=== PATIENT | male | born 1970 | race Caucasian/White ===

== ENCOUNTER → 2022-04-04 | Outpatient (CLI) | payer MEDICAID, SELFPAY ==
[2022-04-04 15:22] LABS: Absolute Lymphocyte Count 1.33 X10^3/uL (0.83-4.51); Absolute Neutrophil Count 4.1 X10^3/uL (2.0-7.7); Basophil# 0.01 X10^3/uL; Basophil% 0.2 % (0-1); Eosinophil# 0.12 X10^3/uL; Hemoglobin 13.7 g/dL (13.0-16.5); Lymphocyte # 1.33 X10^3/ul (0.83-4.51); Lymphocyte % 22.6 % (19-41); Mean Corp Hgb Conc 32.6 g/dL (32-36); Mean Corpuscular Hgb 30.4 pg (27.0-32.0); Mean Corpuscular Volume 93.3 fL (80-94); Mean Platelet Vol. 10.4 fl (6.2-12.0); Monocyte# 0.36 X10^3/uL; Monocyte% 6.1 % (0-10); NRBC Flagged by Analyzer 0 % (0-5); Neutrophil # 4.05 X10^3/uL (2.7-7.7); Neutrophil % 68.8 % (47-70); Platelet Count 258 K/mm3 (150-450); RBC Distribution Width CV 13.4 % (11.6-14.6); RBC Distribution Width SD 46.1 fl (35.1-43.9); White Blood Count 5.9 K/mm3 (4.4-11.0)
[2022-04-04 15:50] LABS: ALB/GLOB Ratio 0.9 RATIO (0.9-2.4); AST(SGOT) 26 U/L (15-37); Alanine Aminotransfer ALT/SGPT 30 U/L (16-61); Albumin, Serum 3.4 g/dL (3.2-5.0); Alkaline Phosphatase 121 U/L (45-117); Anion Gap 6 (5-15); BUN 12 mg/dL (7-18); BUN/Creat Ratio 13.1 RATIO (10-20); Calcium,Total 8.6 mg/dL (8.5-10.1); Chloride 110 mmol/L (98-107); Cholesterol 152 mg/dL (200); Creatinine, Serum 0.92 mg/dL (0.70-1.30); EST Glomerular Filtration Rate 92 mL/min (>60); Est Glom Filt Rate - Afr Amer 112 mL/min (>60); Globulin 3.9 g/dL (2.2-4.2); Glucose 151 mg/dL (74-106); High Density Lipoprotein 59 mg/dL; Potassium 3.5 mmol/L (3.5-5.1); Protein, Total 7.3 g/dL (6.4-8.2); Sodium Level 141 mmol/L (136-145); Triglycerides 183 mg/dL; Very Low Density Lipoprotein 37 mg/dL (5-40)
[2022-04-05 12:04] LABS: Hemoglobin A1c 5.4 % (3.8-5.6)
[2022-04-12 09:07] LABS: HCV Quant. RNA PCR 2400000 IU/mL (.); Hepatitis C Genotype 1a (.)
== END | disposition home or self-care (01) ==
LOC: BIMLAB 13:44
PROVIDERS: PCP Internal Medicine; Visit Provider Internal Medicine
DX: B18.2 Chronic viral hepatitis C (principal); R73.09 Other abnormal glucose; I10 Essential (primary) hypertension
CPT/HCPCS: 36415; 80053; 80061; 83036; 85025; 87522; 87902

== ENCOUNTER 2022-09-21 13:47 | Day surgery (SDC) | payer OTHER, MEDICAID, SELFPAY ==
[2022-09-21] VITALS (8 sets, daily range): BP systolic 140–160; BP diastolic 84–98; PULSE 59–80; RESP 16–17; TEMP 36.5–37.2; O2SAT 94–97; BMI 31.9
--- NOTE | 2022-09-21 | GASB_PTH ---
PATIENT: COMFORT CONCEPCION LOC: EN U#:[id number] AGE/SX: 52/M ROOM: RE09/21/[address]: Dr. Gianluca De Jesus MD : 1970 BED: DIS: 09/21/2022 SPEC #: [id number] RECD: 09/21/22 20:04 STATUS: ALDO ESPINOZAMiguel #: [id number] ERIN: 09/21/22 00:[address]: Gianluca De Jesus DEPT: SURGICAL PATHOLOGY RECD BY: Anthony Glez ENTERED: 09/22/22 09:17 SP TYPE: Gastric Bx OTHR DR: Dr. Donna Novoa MD Tissues: A - Gastric mucous membrane B - Gastric mucous membrane C - Transverse colon D - Sigmoid colon biopsy E - Sigmoid colon biopsy Procedures: Special Stain Group II Surgery Specimen Level IV Alcian Blue/PAS (control) HEADER OPERATION: Colonoscopy with biopsies and hot snare, [place] [place] PRE-OP DIAGNOSIS: Reflux, screening TISSUE SUBMITTED: A ? Antral biopsy for H. pylori and path, B - Gastroesophageal junction, C ? Distal transverse biopsy, mucosal redness, D ? Sigmoid colon polyp, E ? Distal sigmoid polyps MICROSCOPIC DIAGNOSIS A. Antral biopsy: Moderate chronic active gastritis. See comment. B. Gastroesophageal junction, biopsy: A fragment of gastroesophageal mucosa with moderate chronic inflammation. Intestinal metaplasia (goblet cell metaplasia) not identified. See comment. C. Distal transverse colon, mucosal redness, biopsy: Tubular adenoma. D. Sigmoid colon polyp, biopsy: Hyperplastic polyp. E. Distal sigmoid polyps, biopsy: Fragments of tubular adenoma. Fragments of hyperplastic polyp. Fragments of fecal material. See comment. SJ:rg 09/23/2022 COMMENT A. The results of immunohistochemistry for Helicobacter pylori will be reported separately ([id number]). B. Alcian blue/PAS stain with matched control is used in the evaluation of the specimen. E. One fragment of hyperplastic polyp also shows squamous epithelium and may represent anal mucosa. Correlation with clinical, endoscopic findings and appropriate follow up are necessary. MICROSCOPIC DESCRIPTION Slides are reviewed. GROSS DESCRIPTION A - Received in fixative is one container labeled with the patient's name and designated antral biopsy. The specimen consists of one irregular fragment of light murry soft tissue that measures 0.6 x 0.2 x 0.1 cm. The specimen is totally submitted in one cassette. B - Received in fixative is one container labeled with the patient's name and designated GE junction biopsy. The specimen consists of one irregular fragment of light murry soft tissue that measures 0.4 x 0.3 x 0.1 cm. The specimen is totally submitted in one cassette. C - Received in fixative is one container labeled with the patient's name and designated distal transverse mucosal redness biopsy. The specimen consists of multiple irregular fragments of light murry soft tissue that in aggregate measure 0.6 x 0.2 x 0.1 cm. The specimen is totally submitted in one cassette. D - Received in fixative is one container labeled with the patient's name and designated sigmoid colon polyp. The specimen consists of multiple irregular fragments of light murry soft tissue mixed with fecal material that in aggregate measure 0.5 x 0.5 x 0.1 cm. The specimen is totally submitted in one cassette. E - Received in fixative is one container labeled with the patient's name and designated distal sigmoid polyps. The specimen consists of multiple irregular fragments of light murry soft tissue mixed with fecal material that in aggregate measure 2.0 x 0.8 x 0.2 cm. The specimen is totally submitted in one cassette. / SJ:rg 09/22/2022 TC:1 CPT: 23341 x5, 39395
[2022-09-21] MEDS: Lactated Ringers 1,000 ML 15 ML IV (14:16)
--- NOTE | 2022-09-21 15:00 | IMM_PTH ---
PATIENT: COMFORT CONCEPCION LOC: EN U#:[id number] AGE/SX: 52/M ROOM: RE09/21/[address]: Dr. Gianluca De Jesus MD : 1970 BED: DIS: 09/21/2022 SPEC #: [id number] RECD: 09/22/22 12:44 STATUS: ALDO REQ #: [id number] ERIN: 09/21/22 15:[address]: Gianluca De Jesus DEPT: IMMUNOHISTOCHEMISTRY RECD BY: Jumana Otero ENTERED: 09/22/22 12:44 SP TYPE: IMMUNO OTHR DR: Dr. Donna Novoa MD Tissues: A - Stomach, NOS Procedures: H Pylori (initial) PHYSICIAN & INSTITUTION [place] [address] SPECIMEN INFORMATION: Tissue Source: A ? Antral biopsy Clinical Info: Reflux, screening Specimen Number: [id number] CPT code: 30768 METHODOLOGY: Deparaffinized sections of prefer/formalin-fixed tissue or PAP/DQ stained slides are incubated with monoclonal/polyclonal antibodies/oligonucleotide probes. Localization is made via biotin free immunoperoxidase method. Appropriate controls are performed and reacted as expected. Results on target cell population are indicated in the following table: RESULTS: ANTIBODY / CLONE RESULT Block A H Pylori (polyclonal) positive These tests were developed and their performance characteristics determined by [facility]. They may not have been cleared or approved by the U.S. Food and Drug Administration. The FDA has determined that such clearance or approval is not necessary. The above immunohistochemical/dualISH markers are ordered and reviewed by the Pathologist. INTERPRETATION: A. Antral biopsy: Positive for numerous Helicobacter pylori organisms. SJ:felipe 09/23/2022
--- NOTE | 2022-09-21 17:57 | PCM.HP.BLA ---
History and Physical Date of Admission: 09/21/22 Date of Service:? 08/11/22 MR#: [id number] Acct: [id number] Name:COMFORT MCDONALD Rep #: [id number] : 1970 ? ? Provider: Dr. Gianluca De Jesus MD Age/Sex:? 52/M ? ? Location: [facility] Status: Signed Intake Vital Signs ? 08/11/2313:43 Height 5 ft 11 in Weight: 238 lb 2 oz BMI 33.2 BP 164/103 H Blood Pressure Location Lt radial Position Sitting Respiration 22 H Pulse 94 Intake Visit Reasons:?Umbilical hernia/C-SCOPE Chief Complaint: hernia sx Allergies No Known Allergies Allergy (Unverified 08/11/22 14:44) Medications lisinopril 5 mg tablet 5 mg PO DAILY #30 tabs 08/04/22 [Rx Confirmed 08/11/22] PFSH Medical History? Fracture of right heel History of drug overdose Surgical History? Hx of appendectomy Hx of foot surgery Family History?(Updated 08/11/22 @ 14:41 by Claribel Aceves) Father Cancer ?? ? lungGrandfather Stomach cancer Social History? household members:? friend(s) housing:? house current occupational status:? unemployed Smoking Status:? Current every day smoker tobacco type: cigarettes Electronic Cigarette Use:? not used quit status:? considering quitting alcohol intake:? former year quit: 2017 substance use type:? 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 weight training frequency:? other details: STOPPED RECENTLY DUE TO POSSIBLE HERNIA seatbelt use:? always do you feel safe at home:? Yes HPI HPI HPI: Patient is a 52-year-old male who presents for need to schedule screening colonoscopy secondary to age and absence of prior screening colonoscopy.? They are referred for surgical consultation from [place].? Patient has not had prior colonoscopy.? Patient has no personal history of colon cancer, inflammatory bowel disease, or diverticulitis. They describe their bowel habits as fraught with mild frequent constipation.? They have approximately 1 bowel movement every couple of days and sometimes requiring significant straining.? They describe stools are occasionally representing as little arcenio and sometimes formed.? They have not noticed recent bleeding or dark stools. Patient has no family history of inflammatory bowel disease or diverticulitis, but patient states it is possible his father had colon cancer as he believes he had 2 types of cancer?1 of those being lung cancer he notes that his father passed at the age of 52.? ? He also reports that his grandfather had a diagnosis of stomach cancer. The patient's weight is not stable and he reports some recent weight loss. The patient is not prescribed anticoagulants/blood thinners. Relevant prior abdominal surgical history includes: Laparoscopic appendectomy approximately 40 years ago Patient does have a significant history of gastroesophageal reflux.? He states this has been present for at least 6 years.? He states he previously took Nexium with good effect and that his symptoms eased up to the point that he is now able to take Tums to prevent his symptoms.? He reports taking those Tums once every day.? He also is avoiding spicy foods.? He consumes caffeine through coffee and tea.? He notes that he cannot lay flat on the account of his symptoms we will experience reflux.? He denies any difficulty swallowing.? He has no history of a prior upper endoscopy. Patient also presents for a complaint of umbilical hernia.? This finding was first noticed by patient approximately 1 year ago.? Patient is not able to recall how this occurred.? He states he previously worked at [employer] in [facility] and did lots of regular heavy lifting, but he is unable to recall a specific incident that led to his symptoms.? He only knows that 1 day he woke up with a gassy and bloated feeling and could not walk.? Accompanying the symptoms, he reports a bloody bowel movement, but this presentation was self-limited as he states he has not experienced any bleeding per rectum since this event.? He states he presented to an emergency department in [place] and was told this was likely gas pains.? However, over the ensuing months he has noticed a growth in this area and states that it has just now started to bulge.? He reports that the area occasionally becomes hard and more tender, but it is always able to go back in. Patient has a personal history of smoking.? He states that this tobacco habit has been present for the last 16 years and that he has averaged approximately 1/2 pack/day (he is currently at 1/4 pack/day, but at his maximum was smoking 1 pack/day).? He reports that he is actively trying to quit this habit.? Patient also believes he has a personal history of staph infections that cleared with antibiotics. Patient has a history of hepatitis C virus, but is uncertain how he contracted it.? He acknowledges that he needs to treat it. Pertinent surgical history includes: Laparoscopic appendectomy approximately 40 years ago Exam Const General: cooperative and anxious Orientation: alert, awake and oriented x3 Resp Effort & Inspection: normal respiratory effort Cardio Rate: regular rate Rhythm: regular rhythm GI Other: Umbilical hernia is present with some thinning of the overlying umbilical skin.? The hernia contents are primarily fatty and are reducible with some effort.? Patient does have tenderness with this process.? As best as I can palpate (given patient's voluntary guarding due to discomfort) this fascial defect measures approximately 3 cm in width Assessment and Plan Assessment and Plan (1) Umbilical hernia: ?Status:?Chronic ?Qualifiers: ?Obstruction and gangrene presence:?without obstruction or gangrene? Qualified Code(s):?K42.9 - Umbilical hernia without obstruction or gangrene ?Comment: This is a 52-year-old male who presents with a umbilical hernia that has been present for at least the past 1 year.? He has some intermittent pain from this hernia and has experienced some growth.? On exam, the defect for this hernia appears to be approximately 3 cm and the hernia is reducible with some effort.? Per EMR patient has had a CT scan requested previously, but was noncompliant to have it completed.? Patient insist that the CT scan was due to be completed in October as this was the first available date that he was given by radiology, but in my review of the EMR I do not see a study scheduled.? I would like to see this study completed since patient is not well tolerating of a complete exam to get a clear idea of how large the hernia we would be addressing.? Additional concerns related to patient's ongoing physically demanding work, ongoing tobacco use, and reports of possible staph infections previously. ?Plan: ? Obtain CT imaging of the abdomen and pelvis for hernia and have patient return to clinic for preoperative discussions ? Smoking cessation encouraged ? Patient would require MRSA PCR prior to posting of case ? Patient provided warning signs of acute hernia incarceration/strangulation and advised to present for emergent evaluation should these be experienced (2) Encounter for screening for malignant neoplasm of colon: ?Status:?Acute ?Comment: Patient is a 52-year-old male with no prior colonoscopy.? Overall he appears to be at average risk for colon cancer, but may be at somewhat increased risk of his very undetermined reports of a family history with his father are accurate.? Patient describes some intermittent constipation, but denies any other alarm symptoms.? He repeatedly references that his grandfather passed of stomach cancer and he is concerned until he takes these preventative measures. ?Plan: Plan for screening colonoscopy under local MAC with 2-day prep (given patient's history of constipation).? 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 (3) GERD (gastroesophageal reflux disease): ?Status:?Chronic ?Comment: Patient additionally reports an at least 6-year history of regular reflux symptoms.? Given this history, his age greater than 50, race, and tobacco use a diagnostic EGD is indicated.? He also reports a history of stomach cancer in his paternal grandfather.? Therefore, this recommendation was extended patient and he readily accepts. ?Plan: Diagnostic EGD to be performed concurrent with screening colonoscopy as above I have examined the patient and the H&P has been reviewed. There are no clinical changes since date of exam. Patient reports that he did complete his prep successfully for today's procedure as well and that his output is now clear. Proceed to the endoscopy suite for planned upper and lower endoscopy as discussed above.
--- NOTE | 2022-09-21 20:15 | OP.EGD_ITS ---
Patient Name: Vinnie West Procedure Date: 09/21/2022 5:52 PM Date of : 1970 Age: 52 Procedure: Upper GI endoscopy Indications: Suspected esophageal reflux Providers: Gianluca De Jesus MD Medicines: See the Anesthesia note for documentation of the administered medications Patient Profile: Refer to note in patient chart for documentation of history and physical. Complications: No immediate complications. Estimated blood loss: Minimal. Procedure: Pre-Anesthesia Assessment: - The heart rate, respiratory rate, oxygen saturations, blood pressure, adequacy of pulmonary ventilation, and response to care were monitored throughout the procedure. - The heart rate, respiratory rate, oxygen saturations, blood pressure, adequacy of pulmonary ventilation, and response to care were monitored throughout the procedure. After obtaining informed consent, the endoscope was passed under direct vision. Throughout the procedure, the patient's blood pressure, pulse, and oxygen saturations were monitored continuously. The pediatric colonoscope was introduced through the mouth, and advanced to the second part of duodenum. The upper GI endoscopy was somewhat difficult due to the patient's agitation. Successful completion of the procedure was aided by increasing the dose of sedation medication. Scope In: 6:14:54 PM Scope Out: 6:25:25 PM Total Procedure Duration Time 0 hours 10 minutes 31 seconds Findings: The duodenal bulb, first portion of the duodenum and second portion of the duodenum were normal. No biopsies or other specimens were collected for this exam. Localized mild inflammation characterized by erythema was found in the gastric body and in the gastric antrum. Biopsies were taken with a cold forceps for Helicobacter pylori testing. Biopsies were taken with a cold forceps for histology. No biopsies or other specimens were collected for this exam. LA Grade B (one or more mucosal breaks greater than 5 mm, not extending between the tops of two mucosal folds) esophagitis with no bleeding was found. Biopsies were taken with a cold forceps for histology. Estimated blood loss was minimal. The exam was otherwise without abnormality. Impression: - Normal duodenal bulb, first portion of the duodenum and second portion of the duodenum. No specimens collected. - Gastritis. Biopsied. No specimens collected. - LA Grade B esophagitis. Biopsied. - The examination was otherwise normal. Recommendation: - Discharge patient to home (via wheelchair). - Resume previous diet daily. - Use Prilosec (omeprazole) 20 mg PO daily for 4 weeks. - Await pathology results. - Telephone my office for pathology results in 1 week. - Continue present medications. Procedure Code(s): --- Professional --- 66249, Esophagogastroduodenoscopy, flexible, transoral; with biopsy, single or multiple Diagnosis Code(s): --- Professional --- K29.70, Gastritis, unspecified, without bleeding K20.9, Esophagitis, unspecified CPT copyright 2017 [employer]. All rights reserved. The codes documented in this report are preliminary and upon licensed funeral director and embalmer review may be revised to meet current compliance requirements. Gianluca De Jesus MD 09/21/2022 8:15:10 PM This report has been signed electronically. Number of Addenda: 0 Note Initiated On: 09/21/2022 5:52 PM
--- NOTE | 2022-09-21 20:16 | OP.CCLET_ITS ---
09/21/2022 Donna Novoa Md Re : Upper GI endoscopy procedure for Vinnie West Dear Sommer This procedure was performed on Wednesday, September 21, 2022. My impressions and recommendations are as follows: Impressions : - Normal duodenal bulb, first portion of the duodenum and second portion of the duodenum. No specimens collected. - Gastritis. Biopsied. No specimens collected. - LA Grade B esophagitis. Biopsied. - The examination was otherwise normal. Recommendations : - Discharge patient to home (via wheelchair). - Resume previous diet daily. - Use Prilosec (omeprazole) 20 mg PO daily for 4 weeks. - Await pathology results. - Telephone my office for pathology results in 1 week. - Continue present medications. My findings are described in the full procedure note, which is enclosed. If I can be of further assistance, please feel free to contact me at Doctor phone number(s): , Work: . Sincerely, Gianluca De Jesus MD 09/21/2022 8:15:10 PM This report has been signed electronically.
--- NOTE | 2022-09-21 20:22 | OP.COLON_ITS ---
Patient Name: Vinnie West Procedure Date: 09/21/2022 6:29 PM Date of : 1970 Age: 52 Procedure: Colonoscopy Indications: Screening for colorectal malignant neoplasm Providers: Gianluca De Jesus MD Medicines: See the Anesthesia note for documentation of the administered medications Patient Profile: Refer to note in patient chart for documentation of history and physical. Last Colonoscopy: none. The patient's first colonoscopy is today. Complications: No immediate complications. Estimated blood loss: Minimal. Procedure: Pre-Anesthesia Assessment: - The heart rate, respiratory rate, oxygen saturations, blood pressure, adequacy of pulmonary ventilation, and response to care were monitored throughout the procedure. - The heart rate, respiratory rate, oxygen saturations, blood pressure, adequacy of pulmonary ventilation, and response to care were monitored throughout the procedure. After I obtained informed consent, the scope was passed under direct vision. Throughout the procedure, the patient's blood pressure, pulse, and oxygen saturations were monitored continuously. The pediatric colonoscope was introduced through the anus and advanced to the cecum, identified by its appearance. The colonoscopy was technically difficult and complex due to significant looping. Successful completion of the procedure was aided by using manual pressure. The patient tolerated the procedure fairly well. The quality of the bowel preparation was poor. Scope In: 6:29:43 PM Scope Withdrawal Time 0 hours 42 minutes 13 seconds Scope Out: 7:41:10 PM Total Procedure Duration Time 1 hour 11 minutes 27 seconds Findings: A localized area of mildly erythematous mucosa was found in the distal transverse colon. Biopsies were taken with a cold forceps for histology. Estimated blood loss was minimal. A 3 mm polyp was found in the sigmoid colon. The polyp was pedunculated. The polyp was removed with a hot snare. Resection and retrieval were complete. Estimated blood loss: none. A few semi-sessile polyps were found in the distal sigmoid colon. The polyps were 3 to 5 mm in size. Biopsies were taken with a cold forceps for histology. Estimated blood loss was minimal. The retroflexed view of the distal rectum and anal verge was normal and showed no anal or rectal abnormalities. No biopsies or other specimens were collected for this exam. Impression: - Preparation of the colon was poor. - Erythematous mucosa in the distal transverse colon. Biopsied. - One 3 mm polyp in the sigmoid colon, removed with a hot snare. Resected and retrieved. - A few 3 to 5 mm polyps in the distal sigmoid colon. Biopsied. - The distal rectum and anal verge are normal on retroflexion view. Recommendation: - Discharge patient to home (via wheelchair). - Resume previous diet today. - Await pathology results. - Repeat colonoscopy in 1 year for surveillance of multiple polyps. - Telephone my office for pathology results in 1 week. - Continue present medications. Procedure Code(s): --- Professional --- 88575, Colonoscopy, flexible; with removal of tumor(s), polyp(s), or other lesion(s) by snare technique 16691, 59, Colonoscopy, flexible; with biopsy, single or multiple Diagnosis Code(s): --- Professional --- D12.5, Benign neoplasm of sigmoid colon Z12.11, Encounter for screening for malignant neoplasm of colon K63.89, Other specified diseases of intestine CPT copyright 2017 [employer]. All rights reserved. The codes documented in this report are preliminary and upon case finisher review may be revised to meet current compliance requirements. Gianluca De Jesus MD 09/21/2022 8:21:33 PM This report has been signed electronically. Number of Addenda: 0 Note Initiated On: 09/21/2022 6:29 PM
--- NOTE | 2022-09-21 20:22 | OP.CCLET_ITS ---
09/21/2022 Donna Novoa Md Re : Colonoscopy procedure for Vinnie West Dear [place]mer This procedure was performed on Wednesday, September 21, 2022. My impressions and recommendations are as follows: Impressions : - Preparation of the colon was poor. - Erythematous mucosa in the distal transverse colon. Biopsied. - One 3 mm polyp in the sigmoid colon, removed with a hot snare. Resected and retrieved. - A few 3 to 5 mm polyps in the distal sigmoid colon. Biopsied. - The distal rectum and anal verge are normal on retroflexion view. Recommendations : - Discharge patient to home (via wheelchair). - Resume previous diet today. - Await pathology results. - Repeat colonoscopy in 1 year for surveillance of multiple polyps. - Telephone my office for pathology results in 1 week. - Continue present medications. My findings are described in the full procedure note, which is enclosed. If I can be of further assistance, please feel free to contact me at Doctor phone number(s): , Work: . Sincerely, Gianluca De Jesus MD 09/21/2022 8:21:33 PM This report has been signed electronically.
== END 2022-09-21 21:07 | disposition home or self-care (01) ==
LOC: EN 13:54 → AC 13:59
PROVIDERS: PCP Internal Medicine; Referring Provider Internal Medicine; Visit Provider Surgery
PROC: 0DJD8ZZ Inspection of Lower Intestinal Tract, Via Natural or Artificial Opening Endoscopic (ICD-10-PCS; CPT 45378; principal; 2022-09-21 14:55)
DX: Z12.11 Encounter for screening for malignant neoplasm of colon (principal); D12.3 Benign neoplasm of transverse colon; D12.5 Benign neoplasm of sigmoid colon; K29.50 Unspecified chronic gastritis without bleeding; K42.9 Umbilical hernia without obstruction or gangrene; F17.210 Nicotine dependence, cigarettes, uncomplicated; B96.81 Helicobacter pylori [H. pylori] as the cause of diseases classified elsewhere; F12.90 Cannabis use, unspecified, uncomplicated; K63.89 Other specified diseases of intestine; K31.89 Other diseases of stomach and duodenum; I10 Essential (primary) hypertension; K21.00 Gastro-esophageal reflux disease with esophagitis, without bleeding; Z79.899 Other long term (current) drug therapy; Z80.0 Family history of malignant neoplasm of digestive organs
CPT/HCPCS: 45385; 45380; 43239; 88305; 88313; 88342; J7120; J2405

== ENCOUNTER → 2022-11-10 | Outpatient (CLI) | payer OTHER, MEDICAID, SELFPAY ==
[2022-11-12 11:08] LABS: H.Pylori Breath Test Negative (Negative)
== END | disposition home or self-care (01) ==
PROVIDERS: PCP Internal Medicine; Referring Provider Surgery; Visit Provider Surgery
DX: A04.8 Other specified bacterial intestinal infections (principal)
CPT/HCPCS: 83013

== ENCOUNTER → 2023-09-05 | Outpatient (CLI) | payer MEDICAID, SELFPAY ==
[2023-09-05 16:10] LABS: Absolute Lymphocyte Count 1.55 X10^3/uL (0.83-4.51); Absolute Neutrophil Count 3.6 X10^3/uL (2.0-7.7); Basophil# 0.03 X10^3/uL; Basophil% 0.5 % (0-1); Eosinophil# 0.11 X10^3/uL; Eosinophils% 1.9 % (0-5); Hematocrit 43.8 % (40-54); Hemoglobin 14.2 g/dL (13.0-16.5); Lymphocyte # 1.55 X10^3/ul (0.83-4.51); Lymphocyte % 26.1 % (19-41); Mean Corp Hgb Conc 32.4 g/dL (32-36); Mean Corpuscular Hgb 30.1 pg (27.0-32.0); Mean Corpuscular Volume 92.8 fL (80-94); Monocyte# 0.62 X10^3/uL; Monocyte% 10.4 % (0-10); NRBC Flagged by Analyzer 0 % (0-5); Neutrophil # 3.61 X10^3/uL (2.7-7.7); Neutrophil % 60.8 % (47-70); Platelet Count 289 K/mm3 (150-450); RBC Distribution Width CV 14.4 % (11.6-14.6); RBC Distribution Width SD 49.3 fl (35.1-43.9); Red Blood Count 4.72 M/mm3 (4.6-6.2); White Blood Count 5.9 K/mm3 (4.4-11.0)
[2023-09-05 16:30] LABS: Vitamin D,25 Hydroxy 31.8 ng/mL
[2023-09-05 16:36] LABS: ALB/GLOB Ratio 0.8 RATIO (0.9-2.4); AST(SGOT) 29 U/L (15-37); Alanine Aminotransfer ALT/SGPT 42 U/L (16-61); Albumin, Serum 3.5 g/dL (3.2-5.0); Alkaline Phosphatase 86 U/L (45-117); Anion Gap 9 (5-15); BUN 14 mg/dL (7-18); BUN/Creat Ratio 14.3 RATIO (10-20); Calcium,Total 9.5 mg/dL (8.5-10.1); Chloride 103 mmol/L (98-107); Cholesterol 139 mg/dL (200); Creatinine, Serum 0.98 mg/dL (0.70-1.30); EST Glomerular Filtration Rate 85 mL/min (>60); Est Glom Filt Rate - Afr Amer 103 mL/min (>60); Globulin 4.5 g/dL (2.2-4.2); Glucose 121 mg/dL (74-106); High Density Lipoprotein 47 mg/dL; Potassium 4.2 mmol/L (3.5-5.1); Sodium Level 137 mmol/L (136-145); Triglycerides 49 mg/dL; Very Low Density Lipoprotein 10 mg/dL (5-40)
[2023-09-07 19:07] LABS: HCV Quant. RNA PCR 1360000 IU/mL (.); HCV log 10 6.134 (.)
== END | disposition home or self-care (01) ==
PROVIDERS: PCP Internal Medicine; Visit Provider Internal Medicine
DX: I10 Essential (primary) hypertension (principal); B18.2 Chronic viral hepatitis C; E55.9 Vitamin D deficiency, unspecified
CPT/HCPCS: 36415; 80053; 80061; 82306; 85025; 87522

== ENCOUNTER 2023-09-19 16:00 | Outpatient (CLI) | payer MEDICAID, SELFPAY | END 2023-09-19 18:00 | disposition home or self-care (01) | LOC: CT 11-29 14:28 | PROVIDERS: PCP Internal Medicine; Visit Provider Surgery | DX: K42.9 Umbilical hernia without obstruction or gangrene (principal) ==

== ENCOUNTER → 2023-11-01 | Outpatient (CLI) | payer MEDICAID, SELFPAY ==
--- NOTE | 2023-11-01 16:41 | CT_ITS ---
STUDY: CT ABDOMEN AND PELVIS WITH CONTRAST REASON FOR EXAM: Male, 53 years old. Umbilical hernia repair. Prior appendectomy. RADIATION DOSAGE (If Supplied By Facility): CTDIvol = ( 16.67 ) mGy, DLP = ( 1358.60 ) mGycm TECHNIQUE: Transaxial images were obtained from the dome of the diaphragm to the symphysis pubis without oral contrast. IV 100mL Isovue-300 was administered. Sagittal and coronal images were reconstructed. Individualized dose optimization techniques were used for this CT. COMPARISON: Comparison is made with prior study dated September 18, 2023. FINDINGS: Stable appearance of the lung bases suggestive of scarring with areas of linear density and groundglass appearance. Coronary artery calcification. Normal liver. The gallbladder is contracted. There is a 2 cm solitary gallstone in the gallbladder lumen. There are multiple benign calcified granulomata of the spleen. Normal pancreas. Normal bilateral adrenal glands. Stable 3.4 cm right renal cyst. Stable nonobstructive bilateral intrarenal calculi. Normal visualized stomach. Normal small intestine. Normal colon. The appendix is visualized and appears normal. There is scattered atherosclerotic calcification of the abdominal aorta, without a demonstrated aneurysm. Normal inferior vena cava. Normal retroperitoneum. Normal urinary bladder. There is evidence of a soft tissue changes deep to the umbilicus in keeping with postoperative scarring following umbilical hernia repair. No evidence of recurrent hernia. There are degenerative changes of the visualized lumbar spine. CT/Abdomen/Pelvis W IV Cont ONLY IMPRESSION: Status post umbilical hernia repair with postoperative scarring. The remainder of the examination is unchanged. Small bilateral nonobstructive intrarenal calculi and right renal cyst. Solitary gallstone. Electronically Signed: Barrie Figueroa MD at 8:42 EDT ,
[2023-11-01 17:05] LABS: CREATININE FINGERSTICK < 1.0 mg/dL (0.70-1.30); EGFR FINGERSTICK > 60.0000 mL/min (>60)
== END | disposition home or self-care (01) ==
LOC: CT 16:32
PROVIDERS: PCP Internal Medicine; Referring Provider Surgery; Visit Provider Surgery
DX: K42.9 Umbilical hernia without obstruction or gangrene (principal); B18.2 Chronic viral hepatitis C
CPT/HCPCS: 74177; Q9967

== ENCOUNTER → 2023-12-13 | Outpatient (CLI) | payer MEDICAID, SELFPAY ==
[2023-12-13 16:07] LABS: Prothrombin Time (Protime)PT. 13.5 SECONDS (11.7-14.9)
[2023-12-13 16:34] LABS: AST(SGOT) 55 U/L (15-37); Alanine Aminotransfer ALT/SGPT 74 U/L (16-61); Albumin, Serum 3.3 g/dL (3.2-5.0); Alkaline Phosphatase 114 U/L (45-117); Globulin 4.7 g/dL (2.2-4.2)
[2023-12-13 17:23] LABS: HIV - WCH Non-Reactive (Nonreactive); Hepatitis B Surface Antibody Reactive; Hepatitis B Surface Antigen Non-Reactive (Nonreactive)
== END | disposition home or self-care (01) ==
PROVIDERS: PCP Internal Medicine; Referring Provider Internal Medicine Infectious Disease; Visit Provider Internal Medicine Infectious Disease
DX: B18.2 Chronic viral hepatitis C (principal)
CPT/HCPCS: 36415; 80076; 85610; 86703; 86706; 87340

== ENCOUNTER 2024-01-10 17:55 | Emergency (ER) | payer MEDICAID, SELFPAY ==
[2024-01-10 17:56] VITALS: BP 127/74; PULSE 92; RESP 18; TEMP 36.2; O2SAT 92; BMI 35.1
--- NOTE | 2024-01-10 19:39 | ED.VIS.BACK ---
HPI History of Present Illness Chief Complaint: Back Informant: patient Onset/Context/Timing Onset: Weeks (2) Context: Sudden Onset Timing: Continuous Quality: Sharp Location: Lumbar, Buttock and Left Leg (Left thigh) Worsened by: improves with Movement and Ambulation Relieved by: - (Massage, heating pad) Associated Symptoms Associated Symptoms: Tingling and Radiation to Left Leg; Negative for Numbness, Radiation to Right Leg, Fever, Abdominal Pain, Dysuria, Unable to Ambulate, Unable to Transfer, Urinary Retention, Urinary Incontinence, Constipation or Fecal Incontinence Narrative Narrative: Patient presents with pain in his left hip and low back that has been getting worse over the past 2 weeks. Patient states it began rather suddenly. Patient states it has been constant. Patient describes the pain as sharp and cramping. Patient states it is mainly over the left thigh, posterior hip, and low back. Patient states he used a massage gun which seemed to help with the pain. Patient states he also used a heating pad on his low back which helped. Patient states it is worse with certain movements. Patient states it is worse with ambulation. Patient does admit to some tingling over his left thigh. [facility] Medical History Substance abuse Chronic hepatitis C HTN (hypertension) GERD (gastroesophageal reflux disease) Umbilical hernia Substance abuse Wears glasses Loss of hearing Complete edentulism, class III Alcohol use Marijuana use Arthritis Hepatitis Back pain Migraine headache Difficulty chewing Gastric reflux Smoker Chronic cough Leg cramps History of edema Hypertension History of drug overdose Fracture of right heel Home Medications ?Medication ?Instructions ?Recorded ?Last Taken ?Type lisinopril 10 mg tablet 10 mg PO DAILY #30 tabs 09/05/23 Unknown Rx nicotine (polacrilex) 2 mg gum 2 mg buccal Q2H PRN nicotine 09/05/23 Unknown Rx cravings #100 ea omeprazole 20 mg capsule,delayed 20 mg PO DAILY #30 CAPSULES 09/14/23 Unknown Rx release lisinopril 10 mg tablet 10 mg PO DAILY hypertension 09/19/23 09/19/23 History omeprazole 20 mg capsule,delayed 20 mg PO DAILY GERD 09/19/23 09/19/23 History release cyclobenzaprine 10 mg tablet 10 mg PO QHS PRN PRN Muscle Spasm 01/10/24 Unknown Rx #10 TABLETS meloxicam 15 mg tablet 15 mg PO DAILY #10 tabs 01/10/24 Unknown Rx Allergy/AdvReac Type Severity Reaction Status Date / Time No Known Allergies Allergy Verified 01/10/24 19:01 Family History Father Cancer lung Grandfather Stomach cancer Surgical History Status post umbilical hernia repair, follow-up exam History of foot surgery History of appendectomy Hx of foot surgery Hx of appendectomy Social History household members: friend(s) housing: house current occupational status: unemployed Smoking Status: Current every day smoker tobacco type: cigarettes Electronic Cigarette Use: not used quit status: considering quitting alcohol intake: former year quit: 2017 substance use type: former substance user Date of last use: 2019, heroin and methamphetamine, marijuana, heroin and amphetamines what type of physical activity do you participate in: weight training frequency: other details: STOPPED RECENTLY DUE TO POSSIBLE HERNIA seatbelt use: always do you feel safe at home: Yes ROS ROS ED Constitutional Constitutional ED: Denies chills or fever(s) Eyes Eyes: Denies blurry vision or change in vision ENT ENT ED: Denies rhinorrhea or sore throat Cardiovascular Cardiovascular: Denies chest pain or palpitations Respiratory/Chest Respiratory/Chest: Denies cough or dyspnea Gastrointestinal Gastrointestinal: Denies nausea or vomiting Genitourinary Genitourinary ED: Denies dysuria or hematuria Musculoskeletal Musculoskeletal: Reports back pain; Denies neck pain Integumentary Denies abscess or rash Neurologic Neurologic: Denies headache(s) or weakness Allergic/Immunologic Allergic/Immunologic ED: Denies mouth swelling or urticaria EXAM Physical Exam Const Vital Signs: 01/10/24 17:56 01/10/24 21:59 Temperature 97.2 F L 98.6 F Temperature Source Temporal Pulse Rate 92 77 Respiratory Rate 18 22 H Blood Pressure 127/74 H 150/83 H Blood Pressure Mean 91 105 Pulse Ox 92 92 Oxygen Delivery Method Room Air Positive well nourished and well developed General Appearance ED: well developed and NAD HEENT Reports moist mucous membranes Neck supple and no JVD Back/Spine Back/Spine Narrative: There is tenderness over the left lumbar paraspinal muscles. There is tenderness over the sciatic notch. There is tenderness over the left piriformis area. There is limited range of motion of the lumbar spine secondary to pain. Strength is 5/5 bilaterally in the lower extremities. There are no sensory deficits noted. Lumbar Spine / Lower Back: ROM limited and straight leg raise negative bilaterally Extremity Extremity Narrative: There is mild tenderness over the left posterior hip area. There is no deformity noted. There is no pain with internal or external rotation of the left lower extremity. There is mild tenderness of the anterior thigh. Strength is 5/5 bilaterally in the lower extremities. There are no sensory deficits noted. Neuro oriented x3 and no sensory deficits noted Sensorium / Orientation: alert Motor Exam: strength 5/5 throughout Psych mental status grossly normal MDM MDM MDM Narrative Medical decision making narrative: Differential diagnosis included lumbar radiculopathy, spondylolisthesis, sciatica, and lumbosacral strain. X-rays of the lumbar spine will be obtained to assess for spondylolisthesis. Radiography X-Ray: LS SPine, Read by ED Physician, Read by Radiologist, No Fracture and DJD Diagnostic Testing: Clinical Impression(s) from Imaging Studies Lumbar Spine X-Ray 01/10/24 20:15 IMPRESSION: Multilevel spondylosis and disc space narrowing. No visible fracture or subluxation. Electronically Signed: Daniella Alfonso MD at 20:31 EDT , X-rays of the lumbar spine were obtained. There are 2 views. On my independent interpretation, there are some degenerative changes. There is no fracture or spondylolisthesis noted. Radiologist also interpreted the x-rays and agrees. Treatment and Re-Evaluation Narrative: Patient was given injection of Toradol here. Patient was advised of his findings. Patient was given a dose of Norflex here. Patient was given a prescription for meloxicam and Flexeril. Patient was instructed to use ice to the area. Patient was instructed to follow-up with his primary care physician in 5 days. Patient understood and was agreeable with the plan. All questions were answered. Discharge Plan Triage Chief Complaint: Back Other Complaint: Lower Extremity Injury ED Provider: Yoni Kwon Dx/Rx/DC Orders Clinical Impression: Sciatica of left side, Tobacco use disorder Instructions: ED Back Sprain/Strain Prescriptions: New cyclobenzaprine 10 mg tablet 10 mg PO QHS PRN PRN (Reason: Muscle Spasm) Qty: 10 0RF meloxicam 15 mg tablet 15 mg PO DAILY Qty: 10 0RF No Action nicotine (polacrilex) 2 mg gum 2 mg buccal Q2H PRN (Reason: nicotine cravings) Qty: 100 0RF lisinopril 10 mg tablet 10 mg PO DAILY Qty: 30 2RF lisinopril 10 mg tablet 10 mg PO DAILY omeprazole 20 mg capsule,delayed release(DR/EC) 20 mg PO DAILY omeprazole 20 mg capsule,delayed release(DR/EC) 20 mg PO DAILY Qty: 30 2RF Primary Care Provider: Donna Novoa Referrals: Donna Novoa MD [Primary Care Provider] - 3-5 Days Print Language: Vietnamese Disposition Disposition: Home, Self Care Discharge Date/Time: 01/10/24 22:06
[2024-01-10] MEDS: Ketorolac 60 MG/2 ML Vial IM (20:07)
--- NOTE | 2024-01-10 20:15 | RAD_ITS ---
EXAM: XR LUMBOSACRAL SPINE, 2 OR 3 VIEWS CLINICAL INDICATION: INJURY/PAIN TECHNIQUE: Frontal and lateral views of the lumbar spine and sacrum. COMPARISON: No relevant prior studies available. FINDINGS: VERTEBRAE: The usual lordotic curvature is well-maintained. There is no visible fracture. SACRUM/COCCYX: Intact SI joints. DISC SPACES: Marked disc space narrowing at L1-2 and T12-L1 with mild anterior spondylosis and endplate sclerosis. Mild narrowing at L2-3 and L3-4 with mild anterior spondylosis. Moderate L5-S1 disc space narrowing. GASTROINTESTINAL TRACT: Moderate stool in the distal sigmoid and rectum. Included bowel gas pattern is non-obstructive. RAD/Lumbar Spine 2 or 3 Views IMPRESSION: Multilevel spondylosis and disc space narrowing. No visible fracture or subluxation. Electronically Signed: Daniella Alfonso MD at 20:31 EDT ,
[2024-01-10 21:59] VITALS: BP 150/83; PULSE 77; RESP 22; TEMP 37; O2SAT 92
== END 2024-01-10 22:06 | disposition home or self-care (01) ==
PROVIDERS: Emergency Provider Emergency Medicine; PCP Internal Medicine; Visit Provider Emergency Medicine
DX: M54.32 Sciatica, left side (principal); F17.210 Nicotine dependence, cigarettes, uncomplicated
CPT/HCPCS: 72100; 96372; 99283

== ENCOUNTER → 2024-05-16 | Outpatient (CLI) | payer MEDICAID, SELFPAY ==
[2024-05-18 20:07] LABS: HCV Quant. RNA PCR HCV Not Detected IU/mL (.)
== END | disposition home or self-care (01) ==
LOC: LAB 16:20
PROVIDERS: PCP Internal Medicine; Referring Provider Internal Medicine Infectious Disease; Visit Provider Internal Medicine Infectious Disease
DX: B19.20 Unspecified viral hepatitis C without hepatic coma (principal)
CPT/HCPCS: 36415; 87522

== ENCOUNTER → 2024-10-12 | Outpatient (CLI) | payer MEDICAID, SELFPAY ==
--- OUTSIDE RECORDS SUMMARY | 2024-10-12 11:18 | XMS RPT_ITS | CCD ---
Author Organization [facility] Care Team Providers Care Sheet Metal Smith Name Role Phone Keith WALL, Johnnie Graves Primary Care Provider [phone] Dr. Donna Novoa Attending Provider ALIE MODI Attending Unavailable PHYSICIAN, NONE Primary Care Unavailable Dr. Donna Novoa Primary Care Provider Dr. Donna Novoa Attending Provider Dr. Donna Novoa Referring Provider [phone] Dr. Gianluca De Jesus Attending Provider Nurse, Surgery Attending Provider Unavailable Dr. Gianluca De Jesus Other Provider JAMESON ROJAS Attending Unavailable HALLE LAM Primary Care Unavailable HALLE LAM Referring Unavailable PHYSICIAN, NONE Primary Care Physician Unavailab le PHYSICIAN, NONE Primary Care Unavailable PATRIZIA GILLIAM DO Attending Unavailable Hamilton Saini Referring Unavailable Hamilton Saini Attending Unavailable Sommer, Donna Primary Care Unavailable Hamilton Saini Referring Unavailable Hamilton Saini Attending Unavailable Sommer, Donna Primary Care Unavailable Sommer, Donna Primary Care Unavailable Yoni Kwon Attending Unavailable Fahad St Attending Unavailable Minburn, Donna Primary Care Unavailable Sommer, Donna Referring Unavailable Donna Novoa Attending Unavailable Minburn, Donna Primary Care Unavailable Minburn, Donna Primary Care Unavailable Fahad St Attending Unavailable Sommer, Donna Primary Care Unavailable Renetta Moe Attending Unavailable Sommer, Donna Referring Unavailable Sommer, Donna Attending Unavailable Minburn, Donna Primary Care Unavailable Sommer, Donna Referring Unavailable Gianluca De Jesus Attending Unavailable Sommer, Donna Primary Care Unavailable Gianluca De Jesus Referring Unavailable Gianluca De Jesus Attending Unavailable Sommer, Donna Primary Care Unavailable Florence Stewart Referring Unavailable Florence Stewart Attending Unavailable Sommer, Donna Primary Care Unavailable Gianluca De Jesus Referring Unavailable Gianluca De Jesus Attending Unavailable Minburn, Donna Primary Care Unavailable Minburn, Donna Referring Unavailable Gianluca De Jesus Attending Unavailable Sommer, Donna Primary Care Unavailable Sommer, Donna Referring Unavailable Minburn, Donna Primary Care Unavailable Morgan Kate Attending Unavailable Sommer, Donna Referring Unavailable TerryFlorence Attending Unavailable Sommer, Donna Primary Care Unavailable Medications Current Medications Medication Drug Class(es) Dates Sig (Normalized) Sig (Original) cyclobenzaprine hydrochloride 5 mg oral tablet (1 source) Muscle Relaxant Start: 03-04-2024 End: 03-11-2024 cyclobenzaprine 5 mg oral tablet Dose : 5 mg = 1 tab(s), Oral, TID, X 7 day(s), # 21 tab(s), 0 Refill(s), 03/11/24 6:52:00 PM EST Start Date: 03/04/24 Stop Date: 03/11/24 Status: Ordered lidocaine 0.05 mg/mg medicated patch (1 source) Antiarrhythmic, Amide Local Anesthetic Start: 03-04-2024 End: 03-05-2024 lidocaine 5% topical patch Apply 1 patch(es), Transdermal, Daily, # 30 patch(es), 0 Refill(s), 113.3 Start Date: 03/04/24 Stop Date: 03/05/24 Status: Ordered lisinopril 10 mg oral tablet (7 sources) Angiotensin Converting Enzyme Inhibitor Start: 03-04-2024 lisinopril 10 mg oral tablet Dose : 10 mg = 1 tab(s), Oral, Daily, # 100 tab(s), 0 Refill(s) Start Date: 03/04/24 Status: Ordered Start: 03-31-2022 End: 11-08-2022 take 5 mg by mouth once daily Lisinopril Active 5 MG P O DAILY November 08, 2022 9:06am meloxicam 15 mg oral tablet (1 source) Nonsteroidal Anti-inflammatory Drug Start: 03-04-2024 meloxicam 15 mg oral tablet Dose : 15 mg = 1 tab(s), Oral, qDay, # 90 tab(s), 0 Refill(s) Start Date: 03/04/24 Status: Ordered omeprazole 20 mg delayed release oral capsule (6 sources) Proton Pump Inhibitor Start: 03-04-2024 omeprazo le 20 mg oral delayed release capsule 0 Refill(s) Start Date: 03/04/24 Status: Ordered Start: 10-11-2022 take 1 capsule by mo [facility] once daily Omeprazole Active 0 .ROUTE .COMPLEX October 11, 2022 10:02am TAKE 1 CAPSULE BY MOUTH EVERY DAY Start: 09-21-2022 End: 10-11-2022 take 1 tablet by mouth once daily Omeprazole Discontinued 0 .ROUTE .COMPLEX October 10, 2022 9:46am October 11, 2022 10:02am TAKE 1 TABLET BY MOUTH DAILY FOR 4 WEEKS predniSONE 20 mg oral tablet (1 source) Start: 03-04-2024 End: 03-09-2024 predniSONE 20 mg oral tablet Dose : 20 mg = 1 tab(s), Oral, BID, X 5 day(s), # 10 tab(s), 0 Refill(s), 03/09/24 7:17:00 PM EST Start Date: 03/04/24 Stop Date: 03/09/24 Status: Ordered sofosbuvir 400 mg / velpatasvir 100 mg oral tablet (1 source) Hepatitis C Virus NS5A Inhibitor, Hepatitis C Virus Nucleotide Analog NS5B Polymerase Inhibitor Start: 03-04-2024 take 1 tablet by mouth once daily sofosbuvir-velpat asvir 400 mg-100 mg oral tablet Dose = 1 tab(s), Oral, qDay, # 28 tab(s), 0 Refill(s) Start Date: 03/04/24 Status: Ordered Completed/Discontinued Medications Medication Drug Class(es) Dates Sig (Normalized) Sig (Original) amoxicillin 500 mg oral capsule (1 source) Penicillin-class Antibacterial Start: 09-29-2022 End: 11-10-2022 take 500 mg by mouth twice daily Amoxicillin Discontinued 500 MG PO TWICE A DAY 56 September 29, 2022 12:00am November 10, 2022 9:04am clarithromycin 500 mg oral tablet (1 source) Macrolide Antimicrobial Start: 09-29-2022 End: 11-10-2022 take 500 mg by mouth twice daily Clarithromycin Discontinued 500 MG PO TWICE A DAY September 29, 2022 12:00am November 10, 2022 9:04am COMPOUNDED PRESCRIPTION (1 source) Start: 10-08-2018 COMPOUNDED PRESCRIPTION Indications: Venous insufficiency of both lower extremities KNEE HIGH COMPRESSION STOCKINGS 30-40 MM. DX: EDEMA, VENOUS INSUFFICIENCY. 1 Each 1 10/08/2018 Active Comment on above: KNEE HIGH COMPRESSIO N STOCKINGS 30-40 MM. DX: EDEMA, VENOUS INSUFFICIENCY. esomeprazole 20 mg delayed release oral capsule (1 source) Proton Pump Inhibitor Start: 12-12-2018 take 1 capsule by mouth once daily, then take 6 capsules by mouth in the morning esomeprazole (NEXIUM) 20 mg capsule Indications: Gastroesophageal reflux disease, esophagitis presence not specified Take 1 capsule by mouth DAILY (6 AM). 90 capsule 1 12/12/2018 Active Comment on above: Take 1 capsule by [facility] DAILY (6 AM). metroNIDAZOLE 500 mg oral tablet (1 source) Nitroimidazole Antimicrobial Start: 09-27-2022 End: 09-29-2022 take 250 mg by mouth four times daily Metronidazole Discontinued 250 MG PO EVERY 6 HOURS 56 September 27, 2022 12:00am September 29, 2022 10:06am Take medication four times a day w/ food. tetracycline hydrochloride 500 mg oral capsule (1 source) Tetracycline-class Antimicrobial Start: 09-27-2022 End: 09-29-2022 take 500 mg by mouth four times daily Tetracycline Discontinued 500 MG PO EVERY 6 HOURS 56 September 27, 2022 12:00am September 29, 2022 10:06am Take medication four times a day w/ food Problems Active Problems Problem Classification Problem Date Documented Date Episodic/Chronic Administrative/socia l admission (1 source) Persons encountering health services in other specified circumstances; Translations: [Other reasons for seeking consultation] Episodic Chronic obstructive pulmonary disease and bronchiectasis (1 source) Chronic bronchitis; Translations: [Unspecified chronic bronchitis] Onset: 07-05-2016 07-05-2016 Chronic Esophageal disorders (5 sources) Gastroesophageal reflux disease; Translations: [Gastro-esophageal reflux disease without esophagitis] Onset: 05-25-2015 05-25-2015 Chronic Essential hypertension (6 sources) Essential hypertension; Translations: [Essential (primary) hypertension] Chronic Fracture of lower limb (3 sources) Fracture of calcaneus; Translations: [Unspecified fracture of right calcaneus, initial encounter for closed fracture] 03-31-2022 Episodic Hepatitis (8 sources) Chronic hepatitis C; Translations: [Chronic viral hepatitis C] Onset: 06-01-2015 06-01-2015 Chronic Other male genital disorders (1 source) Male erectile dysfunction, unspecified; Translations: [Impotence of organic origin] Onset: 06-30-2015 06-30-2015 Chronic Other nervous system disorders (1 source) Neuropathy; Translations: [Polyneuropathy, unspecified] Onset: 01-05-2017 01-05-2017 Chronic Other nervous system disorders (1 source) Other chronic pain; Translations: [Other chronic pain] Onset: 06-28-2024 Chronic Other screening for suspected conditions (not mental disorders or infectious disease) (5 sources) Encounter for screening for malignant neoplasm of colon; Translations: [Special screening for malignant neoplasms of colon] Episodic Residual codes; unclassified (1 source) Obstructive sleep apnea syndrome; Translations: [Obstructive sleep apnea (adult) (pediatric)] Onset: 05-25-2015 05-25-2015 Chronic Residual codes; unclassified (3 sources) History of operative procedure on foot; Translations: [Other specified postprocedural states] 09-16-2022 Episodic Residual codes; unclassified (1 source) Immunization not carried out because of patient refusal; Translations: [Vaccination not carried out because of patient refusal] Episodic Residual codes; unclassified (2 sources) Noncompliance with treatment; Translations: [Noncompliance] 08-04-2022 Episodic Spondylosis; intervertebral disc disorders; other back problems (2 sources) Radiculopathy, lumbar region; Translations: [Lumbago with sciatica, left side] Onset: 06-28-2024 Episodic Substance-related disorders (7 sources) Tobacco user; Translations: [Nicotine dependence, unspecified, uncomplicated] Onset: 07-05-2016 07-05-2016 Chronic Unclassified (1 source) fractured right ankle Onset: 04-26-2006 04-26-2006 Unclassified (1 source) fractured right calcaneus Onset: 04-26-2006 04-26-2006 Unclassified (1 source) mesenteric contusion Onset: 04-26-2006 04-26-2006 Unclassified (1 source) Other intervertebral disc degeneration, lumbar region without mention of lumbar back pain or lower extremity pain; Translations: [Other intervertebral disc degeneration, lumbar region without mention of lumbar back pain or lower extremity pain] Onset: 09-24-2024 Unclassified (1 source) Low back pain, unspecified; Translations: [Low back pain, unspecified] Onset: 06-13-2024 Past or Other Problems Problem Classification Problem Date Documented Date Episodic/Chronic Abdominal hernia (9 sources) Umbilical hernia; Translations: [Umbilical hernia without obstruction or gangrene] Onset: 04-23-2024 Episodic Hepatitis (1 source) Unspecified viral hepatitis C without hepatic coma; Translations: [Unspecified viral hepatitis C without hepatic coma] Onset: 06-03-2024 Episodic Mycoses (1 source) Onychomycosis due to dermatophyte ; Translations: [Tinea unguium] Onset: 01-05-2017 01-05-2017 Episodic Other diseases of veins and lymphatics (1 source) Venous insufficiency of leg; Translations: [Venous insufficiency (chronic) (peripheral)] Onset: 07-05-2016 07-05-2016 Episodic Other non-traumatic joint disorders (1 source) Chronic ankle pain; Translations: [Pain in right ankle and joints of right foot] Onset: 05-25-2015 05-25-2015 Episodic Other non-traumatic joint disorders (1 source) Pain in left hip; Translations: [Pain in left hip] Onset: 01-31-2024 Episodic Substance-related disorders (1 source) Accidental heroin overdose; Translations: [Poisoning by heroin, accidental (unintentional), initial encounter] Onset: 09-24-2018 09-24-2018 Episodic Unclassified (3 sources) No history of clinical finding in subject; Translations: [No significant past medical history] 03-31-2022 Results Test Name Value Interpretation Reference Range Facility L/S Spine Bending Flex/[place] 06-28-2024 L/S Spine Bending Flex/Ext [facility] [address] [place] [address] L/S Spine Bending Flex/Ext MR#: [id number] Acct: [id number] Name: COMFORT RAM Rep #: [id number] : 1970 M 54 From: Vasu Medel MD PCP: Dr. Donna Novoa MD Status: DEP AMB Study: L/S Spine Bending Flex/Ext Date of Exam: 06/28 Exam# [id number] Ordering Dr: Florence Stewart EXAM: XR Lumbosacral Spine Flexion/Extension Only, 2 or 3 Views CLINICAL INDICATION: CHRONIC PAIN TECHNIQUE: Lateral flexion/extension views of the lumbar spine and sacrum. COMPARISON: No relevant prior studies available. FINDINGS: VERTEBRAE: Degenerative facet arthropathy throughout the lumbar spine, most prominent in the lower lumbar spine. Normal sagittal alignment. No acute fracture. SACRUM/COCCYX: Unremarkable as visualized. No acute fracture. DISC SPACES: Degenerative disc disease throughout the lumbar spine. SOFT TISSUES: Unremarkable. RAD/L/S Spine Bending Flex/Ext IMPRESSION: 1. No acute fracture. No significant dynamic instability. 2. Degenerative changes lumbar spine as described. Reading [facility] CC: CIERRA Soriano; Dr. Donna Novoa MD Sales Manager: Signed Normal [facility] Orthopedic Visit Reporton Orthopedic Visit Report [facility] [address] [place] [id number] OFFICE VISIT Date of Service: 06/28/24 MR#: [id number] Acct: [id number] Name: COMFORT RAM Rep #: [id number] : 1970 Provider: CIERRA Soriano Age/Sex: 54/M Location[place] [facility] Status: Signed Intake Vital Signs 06/13/24 14:04 06/28/24 14:56 Height 5 ft 11 in 5 ft 5 in Weight: 260 lb 240 lb 2 oz BMI 36.2 39.9 BP 138/82 H Blood Pressure Location Rt brachial Position Sitting Respiration 20 H Pulse 78 Pulse Source Monitor Temp 98.2 F Temp Source Temporal Pulse Oximetry (%) 98 Oxygen Delivery Method room air Intake Visit Reasons: LUMBAR SPINE Chief Complaint: Lumbar spine pain Accompanied by: Self Is patient in pain?: Yes Pain scale (1-10): 8 Allergies No Known Allergies Allergy (Verified 06/28/24 14:57) Medications ???Medication ???Instructions ???Recorded ???Confirmed ???Type lisinopril 10 mg tablet 10 mg PO DAILY #30 tabs 01/19/24 0 06/28/24 Rx omeprazole 20 mg capsule,delayed 20 mg PO DAILY #30 CAPSULES 06/28/24 Rx release blood pressure monitor (Blood #1 ea 01/31/24 06/28/24 Rx Pressure Kit) blood pressure monitor #1 ea 03/06/24 06/28/24 Rx methylprednisolone 4 mg tablets in 4 mg PO ONCE #21 tabs 06/13/24 0 06/28/24 Rx a dose pack (Medrol (Burak)) triamcinolone acetonide 0.1 % 1 applic topical TID #30 grams 06/28/24 Rx topical cream Have you fallen in the past year?: No PFSH Medical History Substance abuse Chronic hepatitis C HTN (hypertension) GERD (gastroesophageal reflux disease) Umbilical hernia Substance abuse Wears glasses Loss of hearing Complete edentulism, class III Alcohol use Marijuana use Arthritis Hepatitis Back pain Migraine headache Difficulty chewing Gastric reflux Smoker Chronic cough Leg cramps History of edema Hypertension History of drug overdose Fracture of right heel Surgical History Status post umbilical hernia repair, follow-up exam History of foot surgery History of appendectomy Hx of foot surgery Hx of appendectomy Family History Father Cancer lung Grandfather Stomach cancer Social History household members: friend(s) housing: house current occupational status: unemployed Smoking Status: Current every day smoker tobacco type: cigarettes Electronic Cigarette Use: with nicotine quit status: considering quitting alcohol intake: former year quit: 2017 substance use type: former substance user Date of last use: 2019, heroin and methamphetamine, marijuana, heroin and amphetamines what type of physical activity do you participate in: weight training frequency: other details: STOPPED RECENTLY DUE TO POSSIBLE HERNIA seatbelt use: always do you feel safe at home: Yes HPI LUMBAR SPINE Details: This documentation accurately reflects the service provided and the decisions made by me, CIERRA Soriano 06/28/24 2002. Part of today???s visit was documented by Israel De La Torre MA, acting as scribe. COMFORT RAM is a 54 year old M here today for lumbar spine pain. This has been going on for 3-4 months. Patient woke up with this pain. The pain is in the lower back and shoots down into the left leg. The pain is a sharp pain in the lower back. He feels numbness and tingling in the left leg. Denied any physical therapy, but has done exercises at home. Says that the pain that extends down the leg is a left sided leg pain that starts in the left side lumbar spine and extends to his left lateral left hip and then wraps across his anterior thigh. He denies any right sided involvement. Denies any balance or dexterity issues. He has found some different exercises and stretches on the Internet that he has been doing on his own. The exercises do help. Denies any formal physical therapy. Has been doing ice and heat has helped a little bit. The pain hurts really bad when sitting down and going up the stairs. Took a course of steroids when the pain first started and says that his pain did seem to improve at first however says that his pain has now continued to increase since then. Walking upstairs increases his pain. Says that he can walk alf through [employer] before his pain increases and he needs to sit down. Says that he does rely on leaning on a shopping cart when grocery shopping. And says that he couldn't walk as a far if he didn't lean on a cart. When his symptoms first started back 3 to 4 months ago he does report 1 episode of his legs giving out on him (more content not included)... Normal [facility] Internal Medicine Office Vis thuan 06-13-2024 Internal Medicine Office Visit [facility] [address] [place] [address] [place] [address] OFFICE VISIT Date of Service: 06/13/24 MR#: [id number] Acct: [id number] Name: COMFORT RAM Rep #: [id number] : 1970 Provider: CIERRA Torres Age/Sex: 53/M [place] [facility] Status: Signed Intake Vital Signs 01/31/24 14:42 06/13/24 14:04 Height 5 ft 11 in 5 ft 11 in Weight: 260 lb BMI 36.2 BP 138/82 H Blood Pressure Location Rt brachial Position Sitting Respiration 20 H Pulse 78 Pulse Source Monitor Temp 98.2 F Temp Source Temporal Pulse Oximetry (%) 98 Oxygen Delivery Method room air Intake Visit Reasons: RASH ON ARM/ PAIN IN TAILBONE Chief Complaint: RASH ON ARM Is patient in pain?: Yes (10 left hip and leg sciatic pain ) Allergies No Known Allergies Allergy (Verified 06/13/24 14:07) Medications ???Medication ???Instructions ???Recorded ???Confirmed ???Type lisinopril 10 mg tablet 10 mg PO DAILY #30 tabs 01/19/24 0 06/13/24 Rx omeprazole 20 mg capsule,delayed 20 mg PO DAILY #30 CAPSULES 06/13/24 Rx release blood pressure monitor (Blood #1 ea 01/31/24 06/13/24 Rx Pressure Kit) blood pressure monitor #1 ea 03/06/24 06/13/24 Rx methylprednisolone 4 mg tablets in 4 mg PO ONCE #21 tabs 06/13/24 0 06/13/24 Rx a dose pack (Medrol (Burak)) triamcinolone acetonide 0.1 % 1 applic topical TID #30 grams 06/13/24 Rx topical cream Have you fallen in the past year?: No Nurse's Note: pt reports that he has a rash on his right arm. states he itches it and it bleeds. [facility] Medical History Substance abuse Chronic hepatitis C HTN (hypertension) GERD (gastroesophageal reflux disease) Umbilical hernia Substance abuse Wears glasses Loss of hearing Complete edentulism, class III Alcohol use Marijuana use Arthritis Hepatitis Back pain Migraine headache Difficulty chewing Gastric reflux Smoker Chronic cough Leg cramps History of edema Hypertension History of drug overdose Fracture of right heel Surgical History Status post umbilical hernia repair, follow-up exam History of foot surgery History of appendectomy Hx of foot surgery Hx of appendectomy Family History Father Cancer lung Grandfather Stomach cancer Social History household members: friend(s) housing: house current occupational status: unemployed Smoking Status: Current every day smoker tobacco type: cigarettes Electronic Cigarette Use: with nicotine quit status: considering quitting alcohol intake: former year quit: 2017 substance use type: former substance user Date of last use: 2019, heroin and methamphetamine, marijuana, heroin and amphetamines what type of physical activity do you participate in: weight training frequency: other details: STOPPED RECENTLY DUE TO POSSIBLE HERNIA seatbelt use: always do you feel safe at home: Yes HPI HPI Chief Complaint: RASH ON ARM Details: COMOFRT RAM, is a 53 M who presents to the office today for right on his right upper arm. He states that he noticed this about 2 weeks ago. He noticed this because it was a little itchy and dry at first. He states that he itched it and it bleeds and then it will scab up and then he will itch or pick the scab off and it bleeds again and its just been in a cycle like this. He has not noticed this anywhere else on the body and it has not been spreading. Patient also has some questions regarding his sciatica. Patient states that he has had sciatica for at least 6 months he thinks back into the summer. Patient was evaluated and did have x-rays of both the hip and back. It was recommended the patient to go to physical therapy the time. He states that he was able to look up all of the exercises and did his own stretching and therapy. He states that when he was doing this it did help but that his symptoms came back. He describes the pain as occurring in the low back (above the left buttock) with some radiation into the front of the thigh and even in the anterior medial aspect of the thigh. Patient states it really does not cross the knee. He states the pains are sharp pains that can occur randomly sometimes with movement sometimes when he is seated. Has not noticed any swelling or other skin changes in the area. ROS Const Constitutional: No body ache, chills, excessive sweating, fatigue, fever(s), frequent falls, headache(s), snoring, weight change, sleep problems, abnormal sleep pattern or change in appetite Eyes Eyes: No blurry vision, change in vision, eye pain or Light sensitivity ENT ENT: No abnormal hear (more content not included)... 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 [facility] Comment on above: Performed By: #### [id number] ####[facility] [id number] [place], [place], [id number] HCV QT RNA PCR Not detected Normal . [facility] Comment on above: Performed By: #### [id number] ####[facility] [id number] [place], [place], [id number] TEST INFO: Comment Normal . [facility] Comment on above: Result Comment: The quantitative range o f this assay is 15 IU/mL to 100 million IU/mL. Performed at: [address] [id number] [place] Supervisor: Jacqueline Cordova MD, Phone: [phone] Performed By: #### L [id number] ####[facility] [id number] [place], [place], [id number] HIP, UNI W/ Pelvis 2-3 Views on 01-31-2024 HIP, UNI W/ Pelvis 2-3 Views [facility] [address] [place] [address] HIP, UNI W/ Pelvis 2-3 Views MR#: [id number] Acct: [id number] Name: COMFORT RAM Rep #: [id number] : 1970 M 53 From: Peña Gamboa PCP: Dr. Donna Novoa MD Status: DEP AMB Study: HIP, UNI W/ Pelvis 2-3 Views Date of Exam: Exam# [id number] Ordering Dr: Donna Novoa [place] [id number] EXAM: XR LEFT HIP WITH PELVIS WHEN PERFORMED, 2 OR 3 VIEWS CLINICAL INDICATION: hip pain TECHNIQUE: Two or three views of the left hip with pelvis when performed. COMPARISON: No relevant prior studies available. FINDINGS: BONES/JOINTS: Unremarkable. No displaced fracture. No destructive or sclerotic lesions. Note that overlapping bowel shadows may however obscure fine detail. Sacroiliac joint is unremarkable. No widening of the pubic symphysis. The articular structures are unremarkable. SOFT TISSUES: Unremarkable. No soft tissue swelling or gas. RAD/HIP, UNI W/ Pelvis 2-3 Views IMPRESSION: No evidence of displaced pelvic or hip fracture. Electronically Signed: Peña Jovel MD at 18:40 EDT Reading Location ID and State: [facility] / [place] , Service support , CC: Dr. Donna Novoa MD Sales Manager: Signed Normal [facility] Internal Medicine Office Vis thuan 01-30-2024 Internal Medicine Office Visit [facility] [address] [place] [address] [address] [place] [address] OFFICE VISIT Date of Service: 01/31/24 MR#: [id number] Acct: [id number] Name: COMFORT RAM Rep #: [id number] : 1970 Provider: Dr. 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 Was seen at the ER on 01/10/24. Was dx'd w/ sciatica and given meloxicam and flexril. States it did not help and has been very pain it is worse when he walks and moves. Is taking ibuprofen PRn but there is not much relief. When standing up and trying to wALK OR MOVE IT JUMPS TO A 10/10 PAIN LEVEL. States R hand has been swelling for a couple of days ROM intact and no pain. [facility] Medical History Substance abuse Chronic hepatitis C HTN (hypertension) GERD (gastroesophageal reflux disease) Umbilical hernia Substance abuse Wears glasses Loss of hearing Complete edentulism, class III Alcohol use Marijuana use Arthritis Hepatitis Back pain Migraine headache Difficulty chewing Gastric reflux Smoker Chronic cough Leg cramps History of edema Hypertension History of drug overdose Fracture of right heel Surgical History Status post umbilical hernia repair, follow-up exam History of foot surgery History of appendectomy Hx of foot surgery Hx of appendectomy Family History Father Cancer lung Grandfather Stomach cancer Social History (Updated 01/31/24 @ 13:[address] Donna Novoa MD) household members: friend(s) housing: house current occupational status: unemployed Smoking Status: Current every day smoker tobacco type: cigarettes Electronic Cigarette Use: with nicotine quit status: considering quitting alcohol intake: former year quit: 2017 substance use type: former substance user Date of last use: 2019, heroin and methamphetamine, marijuana, heroin and amphetamines what type of physical activity do you participate in: weight training frequency: other details: STOPPED RECENTLY DUE TO POSSIBLE HERNIA seatbelt use: always do you feel safe at home: Yes HPI HPI Details: COMFORT RAM, is a 53 M who presents to the office today for a follow up. He is up to date on his routine blood work and screening.??? He doesn't want a flu shot.??? He does smoke.??? He reports he is currently smoking 1/2ppd. He does not need refills.??? He reports he is eating healthy and is trying to stay active, but is limited due to back pain. Since the patient was last seen, he had his hernia repaired. He reports that it has healed up without further problems. The patient was seen by ID in November for his hepatitis c and was started on an 8 week course of Mavyret. He reports that he hasn't yet been able to get it stating he is waiting on his insurance. He reports he just recently got it approved and is waiting for it to arrive. The patient has been taking his blood pressure medication as prescribed without any problems. He hasn't been checking his blood pressure at home. He does try to monitor his salt intake. The patient has concerns about sciatic pain. He reports that it started about a month ago. He reports he woke up with it one day and doesn't recall any falls or injuries that triggered it. He reports he had tried taking ibuprofen, ice and heat without improvement. He was seen in the ED for the same on 01/09. XR showed multilevel spondylosis and disc space narrowing. He was treated with toradol and discharged home with meloxicam and flexeril. He reports he finished the prescription but didn't find they were very helpful. He states he is walking better than he was, but continues to have pain. He reports it feels like a cramping sen (more content not included)... Normal [facility] Emergency Department Summary on 01-10-2024 Emergency Department Summary [facility] Medical Records Department [address] [place] [address] Emergency Department Summary 01/10/24 MR#: [id number] Acct: [id number] Name: COMFORT RAM Rep #: [id number] : 1970 53 From: Yoni Kwon DO PCP: Dr. Donna Novoa MD Status:DEP ER Location: ED HPI History of Present Illness Chief Complaint: Back Informant: patient Onset/Context/Timing Onset: Weeks (2) Context: Sudden Onset Timing: Continuous Quality: Sharp Location: Lumbar, Buttock and Left Leg (Left thigh) Worsened by: improves with Movement and Ambulation Relieved by: - (Massage, heating pad) Associated Symptoms Associated Symptoms: Tingling and Radiation to Left Leg; Negative for Numbness, Radiation to Right Leg, Fever, Abdominal Pain, Dysuria, Unable to Ambulate, Unable to Transfer, Urinary Retention, Urinary Incontinence, Constipation or Fecal Incontinence Narrative Narrative: Patient presents with pain in his left hip and low back that has been getting worse over the past 2 weeks. Patient states it began rather suddenly. Patient states it has been constant. Patient describes the pain as sharp and cramping. Patient states it is mainly over the left thigh, posterior hip, and low back. Patient states he used a massage gun which seemed to help with the pain. Patient states he also used a heating pad on his low back which helped. Patient states it is worse with certain movements. Patient states it is worse with ambulation. Patient does admit to some tingling over his left thigh. [facility] Medical History Substance abuse Chronic hepatitis C HTN (hypertension) GERD (gastroesophageal reflux disease) Umbilical hernia Substance abuse Wears glasses Loss of hearing Complete edentulism, class III Alcohol use Marijuana use Arthritis Hepatitis Back pain Migraine headache Difficulty chewing Gastric reflux Smoker Chronic cough Leg cramps History of edema Hypertension History of drug overdose Fracture of right heel Home Medications ???Medication ???Instructions ???Recorded ???Last Taken ???Type lisinopril 10 mg tablet 10 mg PO DAILY #30 tabs 09/05/23 Unknown Rx nicotine (polacrilex) 2 mg gum 2 mg buccal Q2H PRN nicotine 09/05/23 Unknown Rx cravings #100 ea omeprazole 20 mg capsule,delayed 20 mg PO DAILY #30 CAPSULES 09/14/23 Unknown Rx release lisinopril 10 mg tablet 10 mg PO DAILY hypertension 09/19/23 09/19/23 History omeprazole 20 mg capsule,delayed 20 mg PO DAILY GERD 09/19/23 09/19/23 History release cyclobenzaprine 10 mg tablet 10 mg PO QHS PRN PRN Muscle Spasm 01/10/24 Unknown Rx #10 TABLETS meloxicam 15 mg tablet 15 mg PO DAILY #10 tabs 01/10/24 Unknown Rx Allergy/AdvReac Type Severity Reaction Status Date / Time No Known Allergies Allergy Verified 01/10/24 19:01 Family History Father Cancer lung Grandfather Stomach cancer Surgical History Status post umbilical hernia repair, follow-up exam History of foot surgery History of appendectomy Hx of foot surgery Hx of appendectomy Social History household members: friend(s) housing: house current occupational status: unemployed Smoking Status: Current every day smoker tobacco type: cigarettes Electronic Cigarette Use: not used quit status: considering quitting alcohol intake: former year quit: 2017 substance use type: former substance user Date of last use: 2019, heroin and methamphetamine, marijuana, heroin and amphetamines what type of physical activity do you participate in: weight training frequency: other details: STOPPED RECENTLY DUE TO POSSIBLE HERNIA seatbelt use: always do you feel safe at home: Yes ROS ROS ED Constitutional Constitutional ED: Denies chills or fever(s) Eyes Eyes: Denies blurry vision or change in vision ENT ENT ED: Denies rhinorrhea or sore throat Cardiovascular Cardiovascular: Denies chest pain or palpitations Respiratory/Chest Respiratory/Chest: Denies cough or dyspnea Gastrointestinal Gastrointestinal: Denies nausea or vomiting Genitourinary Genitourinary ED: Denies dysuria or hematuria Musculoskeletal Musculoskeletal: Reports back pain; Denies neck pain Integumentary Denies abscess or rash Neurologic Neurologic: Denies headache(s) or weakness Allergic/Immunologic Allergic/Immunologic ED: Denies mouth swelling or urticaria EXAM Physical Exam Const Vital Signs: 01/10/24 17:56 01/10/24 21:59 Temperature 97.2 F L 98.6 F Temperature Source Temporal Pulse Rate 92 77 Respiratory Rate 18 22 H Blood Pressure 127/74 H 150/83 H Blood Pressure (more content not included)... Normal [facility] Lumbar Spine 2 or 3 Viewson 01-10-2024 Lumbar Spine 2 or 3 Views [facility] Imaging Services [address] [place], [place] [address] Lumbar Spine 2 or 3 Views MR#: [id number] Acct: [id number] Name: COMFORT RAM Rep #: [id number] : 1970 M 53 From: Daniella Alfonso MD PCP: Dr. Donna Novoa MD Status: [facility] ER Study: Lumbar Spine 2 or 3 Views Date of Exam: Exam# [id number] Ordering Dr: Yoni Kwon DO [id number] EXAM: XR LUMBOSACRAL SPINE, 2 OR 3 VIEWS CLINICAL INDICATION: INJURY/PAIN TECHNIQUE: Frontal and lateral views of the lumbar spine and sacrum. COMPARISON: No relevant prior studies available. FINDINGS: VERTEBRAE: The usual lordotic curvature is well-maintained. There is no visible fracture. SACRUM/COCCYX: Intact SI joints. DISC SPACES: Marked disc space narrowing at L1-2 and T12-L1 with mild anterior spondylosis and endplate sclerosis. Mild narrowing at L2-3 and L3-4 with mild anterior spondylosis. Moderate L5-S1 disc space narrowing. GASTROINTESTINAL TRACT: Moderate stool in the distal sigmoid and rectum. Included bowel gas pattern is non-obstructive. RAD/Lumbar Spine 2 or 3 Views IMPRESSION: Multilevel spondylosis and disc space narrowing. No visible fracture or subluxation. Electronically Signed: Daniella Alfonso MD at 20:31 EDT , CC: Dr. Donna Novoa MD; Dr. Yoni Kwon DO Sales Manager: Signed Normal [facility] Miscellaneous Lab Procedureo n 12-20-2023 [facility] LAB TEST Normal [facility] Comment on above: Order Comment: [id number] Hepatitis C Virus (HCV) FibroSure SER,RF Result Comment: TEST RESULTS LIMITS HCV FibroSure HCV FibroSURE Results: Fibrosis Score 0.11 0.00-0.21 Fibrosis Stage F0 - No fibrosis Necroinflammat Activity Score 0.31 High 0.00-0.17 Necroinflammat Activity Grade A1-Minimal activity Analysis: Methodology: The analytes tested are performed by FibroSure-Specific methods. Not intended for use with other diagnostic considerations. Alpha 2-Macroglobulins, Qn 265 mg/dL 110-276 Haptoglobin 152 mg/dL 29-370 Apolipoprotein A-1 174 mg/dL 101-178 Bilirubin, Total <0.1 mg/dL 0.0-1.2 GGT 38 IU/L 0-65 ALT (SGPT) P5P 63 High IU/L 0-55 Interpretations: Quantitative results of 6 biochemical tests are analyzed using a computational algorithm to provide a quantitative surrogate marker (0.0-1.0) for liver fibrosis (METAVIR F0-F4) and for necroinflammatory activity (METAVIR A0-A3). Fibrosis Scoring: <=0.21 = Stage F0 - No fibrosis 0.21 - 0.27 = Stage F0 - F1 0.27 - 0.31 = Stage F1 - Portal fibrosis 0.31 - 0.48 = Stage F1 - F2 0.48 - 0.58 = Stage F2 - Bridging fibrosis with few septa 0.58 - 0.72 = Stage F3 - Bridging fibrosis with many septa 0.72 - 0.74 = Stage F3 - F4 >0.74 = Stage F4 - Cirrhosis Necroinflamm Activity Scoring: <0.17 = Grade A0 - No Activity 0.17 - 0.29 = Grade A0 - A1 0.29 - 0.36 = Grade A1 - Minimal activity 0.36 - 0.52 = Grade A1 - A2 0.52 - 0.60 = Grade A2 - Moderate activity 0.60 - 0.62 = Grade A2 - A3 >0.62 = Grade A3 - Severe activity Limitations: The negative predictive value of a Fibrotest score <0.31 (absence of clinically significant fibrosis) was 85% when compared to liver biopsy in 1,270 HCV infected patients with a 38% prevalence of significant liver fibrosis (F2, 3 or 4). The positive predictive value of a Fibrotest score >0.48 (F2, 3, 4) was 61% in that same patient cohort. HCV FibroSURE is not recommended in patients with Gilbert Disease, acute hemolysis (e.g. HCV ribavirin therapy mediated hemolysis) acute hepatitis of the liver, extra-hepatic cholestasis, transplant patients, and/or renal insufficiency patients. Any of these clinical situations may lead to inaccurate quantitative predictions of fibrosis and necroinflammatory activity in the liver. Comment: This test was developed and its performance characteristics determined by [employer]. It has not been cleared or approved by the Food and Drug Administration. The FDA has determined that such clearance or approval is not necessary. For questions regarding this report please contact customer service at . TESTING PERFORMED AT [facility]. ORIGINAL REPORT ON FILE IN LAB CONTAINS ADDITIONAL TEST SITE INFORMATION. Performed By: #### L 3890.6200, L500.3400, L3890.6005, L801.1541, L3890.6100, L300.3900 ####[facility] [id number] [facility] [place], [place], [id number] HIV - WCHon 12-13-2023 HIV Non-Reactive Normal Nonreactive [facility] Comment on above: Performed By: #### L3890.6200, L500.3400 , L3890.6005, L801.1541, L3890.6100, L300.3900 #### [facility] Laboratory [address] [place], [address] Hepatitis B Surface Antibody on 12-13-2023 HEP B Surf Ab Reactive Normal [facility] Comment on above: Result Comment: Non Reactive: Inconsiste nt with immunity less than <10 mIU/mL Reactive: Consistent with immunity greater than or equal to 10 mIU/mL Performed By: #### L 3890.6200, L500.3400, L3890.6005, L801.1541, L3890.6100, L300.3900 ####[facility] [address] [place], [address] Hepatitis B Surface Antigeno n 12-13-2023 HEP B Surf Ag Non-Reactive Normal Nonreactive [facility] Comment on above: Performed By: #### L3890.6200, L500.3400 , L3890.6005, L801.1541, L3890.6100, L300.3900 #### [facility] [address] [place], [address] Liver Profileon 12-13-2023 Albumin [Mass/Vol] 3.3 g/dL Normal 3.2-5.0 [facility] Comment on above: Performed By: #### L3890.6200, L500.3400 , L3890.6005, L801.1541, L3890.6100, L300.3900 #### [facility] [address] [place], [address] ALK P 114 U/L Normal 45-117 [facility] Comment on above: Performed By: #### L3890.6200, L500.3400 , L3890.6005, L801.1541, L3890.6100, L300.3900 #### [facility] [address] [place], [address] ALT [Catalytic activity/Vol] 74 U/L High 16-61 [facility] Comment on above: Performed By: #### L3890.6200, L500.3400 , L3890.6005, L801.1541, L3890.6100, L300.3900 #### [facility] [address] [place], [address] AST [Catalytic activity/Vol] 55 U/L High 15-37 [facility] Comment on above: Result Comment: Slight Hemolysis, Result may be falsely increased. Performed By: #### L 3890.6200, L500.3400, L3890.6005, L801.1541, L3890.6100, L300.3900 #### [facility] [address] [place], [address] Bilirubin [Mass/Vol] 0.50 mg/dL Normal 0.20-1.00 [facility] Comment on above: Result Comment: For patients on eltrombo pag therapy, use of Dimension [place] TBIL is not recommended. Performed By: #### L 3890.6200, L500.3400, L3890.6005, L801.1541, L3890.6100, L300.3900 #### [facility] [address] [place], [address] Bilirubin.direc t [Mass/Vol] 0.20 mg/dL Normal 0.00-0.30 [facility] Comment on above: Performed By: #### L3890.6200, L500.3400 , L3890.6005, L801.1541, L3890.6100, L300.3900 #### [facility] [address] [place], [address] Globulin (S) [Mass/Vol] 4.7 g/dL High 2.2-4.2 [facility] Comment on above: Performed By: #### L3890.6200, L500.3400 , L3890.6005, L801.1541, L3890.6100, L300.3900 #### [facility] [address] [place], [address] T PROT 8.0 g/dL Normal 6.4-8.2 [facility] Comment on above: Performed By: #### L3890.6200, L500.3400 , L3890.6005, L801.1541, L3890.6100, L300.3900 #### [facility] [address] [place], [address] Prothrombin Time w/INRon INR Coag (PPP) [Relative time] 1.0 {INR} Normal [facility] Comment on above: Performed By: #### L3890.6200, L500.3400 , L3890.6005, L801.1541, L3890.6100, L300.3900 #### [facility] [address] [place], [place], [address] PT Coag (PPP) [Time] 13.5 s Normal 11.7-14.9 [facility] Comment on above: Performed By: #### L3890.6200, L500.3400 , L3890.6005, L801.1541, L3890.6100, L300.3900 #### [facility] [address] [place], [address] Surgery Visit Reporton 11-23 Surgery Visit Report [facility] [address] [place], [place] [address] OFFICE VISIT Date of Service: 11/24/23 MR#: [id number] Acct: [id number] Name: COMFORT RAM Rep #: [id number] : 1970 Provider: Dr. Gianluca snyder MD Age/Sex: 53/M Location: [facility] [address] Status: Signed Intake Vital Signs 09/27/23 13:47 Height 5 ft 11 in Weight: 244 lb BMI 34.0 BP 148/78 H Blood Pressure Location Lt brachial Position Sitting Respiration 16 Pulse 99 Pulse Source Monitor Temp 98.5 F Temp Source Temporal Pulse Oximetry (%) 94 Oxygen Delivery Method room air Intake Visit Reasons: FU HERNIA EXAM Chief Complaint: fu hernia exam Is patient in pain?: No Allergies No Known Allergies Allergy (Verified 11/24/23 15:04) Medications ???Medication ???Instructions ???Recorded ???Confirmed ???Type lisinopril 10 mg tablet 10 mg PO DAILY #30 tabs 09/05/23 11/24/23 Rx nicotine (polacrilex) 2 mg gum 2 mg buccal Q2H PRN nicotine 09/05/23 11/24/23 Rx cravings #100 ea omeprazole 20 mg capsule,delayed 20 mg PO DAILY #30 CAPSULES 09/14/23 11/24/23 Rx release lisinopril 10 mg tablet 10 mg PO DAILY hypertension 09/19/23 11/24/23 History omeprazole 20 mg capsule,delayed 20 mg PO DAILY GERD 09/19/23 11/24/23 History release Subjective Details: Patient presents following emergent umbilical hernia repair with mesh on 09/19/2023. Since hospital discharge they have been doing well. They report no significant postoperative pain and states they are pleased with her recovery. They do share that every now and then they will experience some pulling on the lateral aspects of the bellybutton but otherwise have no discomfort. They have no wound concerns and are pleased with the cosmetic outcome. Beyond the above immediate issues, Mr. Ram states that he is continue to work at trying to cut back on his smoking habit and is down to 1/2 pack/day with nicotine vaping. He also requests a referral for hepatitis C treatment. Objective Details: Constitutional: Appreciative, cooperative Abdomen: Well-healed umbilical incision with normal scarring, no underlying fluctuance, nontender to palpation. Coding Level of Care Code Global Post Op Diagnoses Umbilical hernia without obstruction and without gangrene K42.9 Obstruction and gangrene presence: without obstruction or gangrene Chronic hepatitis C without hepatic coma B18.2 Hepatic coma status: without hepatic coma [facility] Medical History Umbilical hernia Substance abuse Wears glasses Loss of hearing Complete edentulism, class III Alcohol use Marijuana use Arthritis Hepatitis Back pain Migraine headache Difficulty chewing Gastric reflux Smoker Chronic cough Leg cramps History of edema Hypertension History of drug overdose Fracture of right heel Surgical History Hx of foot surgery Hx of appendectomy Family History Father Cancer lung Grandfather Stomach cancer Social History (System 10/26/23 @ 13:11 by Yun Gomez) household members: friend(s) housing: house current occupational status: unemployed Smoking Status: Current every day smoker tobacco type: cigarettes Electronic Cigarette Use: not used quit status: considering quitting alcohol intake: former year quit: 2016 substance use type: former substance user Date of last use: 2019, heroin and methamphetamine, marijuana, heroin and amphetamines what type of physical activity do you participate in: weight training frequency: other details: STOPPED RECENTLY DUE TO POSSIBLE HERNIA seatbelt use: always do you feel safe at home: Yes Assessment and Plan (No Qualifiers) Assessment and Plan (1) Umbilical hernia: Status: Chronic Comment: Patient a 53-year-old male who follows up 2 months after a emergent umbilical hernia repair due to incarceration event. He has healed very well and is pleased with the outcome. I have no concerns ongoing and have recommended he make a gradual return to activity. Plan: -No formal clinic follow-up is required, but patient is invited to call or arrange further follow-up with the occasion arises in the future (2) Chronic hepatitis C: Status: Chronic Comment: Patient has chronic hepatitis C infection who requests referral for treatment. We will look to make a referral to infectious disease for evaluation. Plan: ??? Refer to ID for consideration of hepatitis C treatment 11/24/23 1647 Date __ Gianluca Michele Signature: Date __ (if azalia (more content not included)... Normal [facility] Abdomen/Pelvis W IV Cont ONL Yon 11-01-2023 Abdomen/Pelvis W IV Cont ONLY [facility] Imaging Services [address] [place] [address] Abdomen/Pelvis W IV Cont ONLY MR#: [id number] Acct: [id number] Name: COMFORT RAM Rep #: [id number] : 1970 M 53 From: Barrie jessica MD PCP: Dr. Donna Novoa MD Status: REG CLI Study: Abdomen/Pelvis W IV Cont ONLY Date of Exam: Exam# [id number] Ordering Dr: Gianluca De Jesus MD [id number] STUDY: CT ABDOMEN AND PELVIS WITH CONTRAST REASON FOR EXAM: Male, 53 years old. Umbilical hernia repair. Prior appendectomy. RADIATION DOSAGE (If Supplied By Facility): CTDIvol = ( 16.67 ) mGy, DLP = ( 1358.60 ) mGycm TECHNIQUE: Transaxial images were obtained from the dome of the diaphragm to the symphysis pubis without oral contrast. IV 100mL Isovue-300 was administered. Sagittal and coronal images were reconstructed. Individualized dose optimization techniques were used for this CT. COMPARISON: Comparison is made with prior study dated September 18, 2023. __ FINDINGS: Stable appearance of the lung bases suggestive of scarring with areas of linear density and groundglass appearance. Coronary artery calcification. Normal liver. The gallbladder is contracted. There is a 2 cm solitary gallstone in the gallbladder lumen. There are multiple benign calcified granulomata of the spleen. Normal pancreas. Normal bilateral adrenal glands. Stable 3.4 cm right renal cyst. Stable nonobstructive bilateral intrarenal calculi. Normal visualized stomach. Normal small intestine. Normal colon. The appendix is visualized and appears normal. There is scattered atherosclerotic calcification of the abdominal aorta, without a demonstrated aneurysm. Normal inferior vena cava. Normal retroperitoneum. Normal urinary bladder. There is evidence of a soft tissue changes deep to the umbilicus in keeping with postoperative scarring following umbilical hernia repair. No evidence of recurrent hernia. There are degenerative changes of the visualized lumbar spine. __ CT/Abdomen/Pelvis W IV Cont ONLY IMPRESSION: Status post umbilical hernia repair with postoperative scarring. The remainder of the examination is unchanged. Small bilateral nonobstructive intrarenal calculi and right renal cyst. Solitary gallstone. Electronically Signed: Barrie Figueroa MD at 8:42 EDT Reading Location ID and State: [facility] / [place] , Service support , CC: Dr. Donna Novoa MD; Dr. Gianluca De Jesus MD Sales Manager: Signed Normal [facility] CREATININE FINGERSTICKon CREATININE WB < 1.0 Normal 0.70-1.30 [facility] Comment on above: Performed By: #### L9100.0200 ####[facility] [address] [place], [place], [address] EGFR WB > 60.0000 Normal >60 [facility] Comment on above: Performed By: #### L9100.0200 ####[facility] [address] [place], [place], [address] 36on 09-07-2023 36 Called pt back, he s tated he was told to call us to schedule, asked what he needs to be seen for an he didn't know, stated Dr. Novoa told him to call us, to help the pt out since he seemed confused, a call was made to Dr. Novoa to get info. They stated the pt needs to call Dr. Saini @ [phone] they stated that's were the pts referral was sent too. Called the pt back and informed him to call the # given above. Pt gave verbal understanding. [facility] Name of caller: Karie reed Contact phone number: [phone] Relationship to Patient: patient Provider: Do. Wadsworth Practice: Infectious Disease Chief Complaint/Reason for Call: Pt states he is currently in the hospital and was told to reach out to make an appointment. Please advise. Best time of day caller can be reached: any Patient advised that office/PCP has 24-48 business hours to return their call: Yes Normal [facility] Helicobacter pylori breath t est in pediatric patientOrdered By: Gianluca De Jesus on 11-10-2022 CO2 post dose urea Ql (Exhl gas) Negative Negative [facility] Comment on above: Performed at: [facility] [address] [id number] Director: Mark Nagel PhD, Phone: [phone] Absolute lymphocyte counton 04-04-2022 Lymphocytes Auto (Unsp spec) [#/Vol] 1.33 10*3/uL 0.83-4.51 [facility] Work Phone: Basophil percentageon 2021 Basophil percentage 6.380 . [facility] Work Phone: Comment on above: Result Units: log10 IU/mL Basophils/100 WBC (Bld) 0.2 % 0-1 [facility] Work Phone: Bilirubin [Mass/Vol] 0.50 mg/dL 0.20-1.00 [facility] Work Phone: Comment on above: For patients on eltrombopag therapy, use of Dimension [place] TBIL is not recommended. Chloride [Moles/Vol] 110 mmol/L 98-107 [facility] Work Phone: Cholesterol [Mass/Vol] 152 mg/dL <200 [facility] Work Phone: Comment on above: <200 mg/dL Desirable 200-240 mg/dL Borde rline >240 mg/dL High Risk Eosinophils/100 WBC (Bld) 2.0 % 0-5 [facility] Work Phone: Glucose [Mass/Vol] 151 mg/dL 74-106 [facility] Work Phone: Comment on above: Fasting Glucose result greater than or e qual to 126 mg/dL suggests DIABETES MELLITUS per A.D.A. criteria. Neutrophils (Bld) [#/Vol] 4.1 10*3/uL 2.0-7.7 [facility] Work Phone: Neutrophils/100 WBC (Bld) 68.8 % 47-70 [facility] Work Phone: Potassium [Moles/Vol] 3.5 mmol/L 3.5-5.1 [facility] Work Phone: Protein [Mass/Vol] 7.3 g/dL 6.4-8.2 [facility] Work Phone: Sodium [Moles/Vol] 141 mmol/L 136-145 [facility] Work Phone: Triglyceride [Mass/Vol] 183 mg/dL <199 [facility] Work Phone: Comment on above: The drugs N-Acetylcysteine and Metamizol e may falsely depress this assay.Serum Triglycerides Reference Interval Normal <150 mg/dL Borderline high 150 - 199 mg/dL High 200 - 499 mg/dL Very High > or = 500 mg/dL WBC (Bld) [#/Vol] 5.9 10*3/uL 4.4-11.0 [facility] Work Phone: Blood erythrocytes count (nu mber/volume)on 04-04-2022 RBC (Bld) [#/Vol] 4.50 10*6/uL 4.6-6.2 [facility] Work Phone: Blood hemoglobin measurement (mass/volume)on 04-04-2022 Hemoglobin (Bld) [Mass/Vol] 13.7 g/dL 13.0-16.5 [facility] Work Phone: Blood lymphocytes/100 leukoc yteson 04-04-2022 Lymphocytes/100 WBC (Bld) 22.6 % 19-41 [facility] Work Phone: Blood monocytes/100 leukocyt eson 04-04-2022 Monocytes/100 WBC (Bld) 6.1 % 0-10 [facility] Work Phone: Blood platelet mean volumeon 04-04-2022 Platelet mean volume (Bld) [Entitic vol] 10.4 fL 6.2-12.0 [facility] Work Phone: Determination of erythrocyte mean corpuscular volume (MCV)on 04-04-2022 MCV (RBC) [Entitic vol] 93.3 fL 80-94 [facility] Work Phone: [phone] Hematocrit Auto (Bld) [Volum e fraction]on 04-04-2022 Hematocrit (Bld) [Volume fraction] 42.0 % 40-54 [facility] Work Phone: [phone] Laboratory - Chemistry and C hemistry - challengeon 04-04-2022 ALP [Catalytic activity/Vol] 121 U/L 45-117 [facility] Work Phone: [phone] ALT [Catalytic activity/Vol] 30 U/L 16-61 [facility] Work Phone: [phone] CO2 [Moles/Vol] 25.0 mmol/L 21.0-32.0 [facility] Work Phone: [phone] Globulin (S) [Mass/Vol] 3.9 g/dL 2.2-4.2 [facility] Work Phone: [phone] Urea nitrogen/Creati nine [Mass ratio] 13.1 mg/mg 10-20 [facility] Work Phone: [phone] Laboratory - Hematology and Cell countson 04-04-2022 Erythrocyte distribution width (RBC) [Entitic vol] 46.1 fL 35.1-43.9 [facility] Work Phone: [phone] Erythrocyte distribution width (RBC) [Ratio] 13.4 % 11.6-14.6 [facility] Work Phone: [phone] Immature granulocytes/10 0 WBC (Bld) 0.300 % 0.0-0.9 [facility] Work Phone: Comment on above: IG% - Immature Granulocytes (promyelocyt es, myelocytes and metamyelocytes) > 1% indicates that a LEFT SHIFT is Present. MCH (RBC) [Entitic mass] 30.4 pg 27.0-32.0 [facility] Work Phone: Nucleated RBC/100 WBC (Bld) [Ratio] 0 % 0-5 [facility] Work Phone: Laboratory - Miscellaneous t estson 04-04-2022 Service comment (Unsp spec) [Interp] Comment . [facility] Work Phone: Comment on above: This test was developed and its performa nce characteristicsdetermined by [facility]. It has not been cleared or approvedby the U.S. Food and Drug Administration.The FDA has determined that such clearance or approval isnot necessary. This test is used for clinical purposes. Itshould not be regarded as investigational or for research.Performed at: [address] [id number] Director: Jacqueline Cordova MD, Phone: [phone] MCHC Auto (RBC) [Mass/Vol]on 04-04-2022 MCHC (RBC) [Mass/Vol] 32.6 g/dL 32-36 [facility] Work Phone: No Panel Informationon 04-04 Addendum Document Comment . [facility] Work Phone: Comment on above: The quantitative range of this assay is 15 IU/mL to 100million IU/mL. Estimated GFR (MDRD) Amer 112 mL/min >60 [facility] Work Phone: Comment on above: GFR Calc Estimated GFR (MDRD) Non-Af Amer 92 mL/min >60 [facility] Work Phone: Comment on above: Non- GFR Calc Hepatitis C Genotype 1a . [facility] Work Phone: Platelets bldon 04-04-2022 Platelets (Bld) [#/Vol] 258 10*3/uL 150-450 [facility] Work Phone: Serum or plasma albumin aaron urement (mass/volume)on 04-04-2022 Albumin [Mass/Vol] 3.4 g/dL 3.2-5.0 [facility] Work Phone: Serum or plasma albumin/glob ulin mass ratioon 04-04-2022 Albumin/Globuli n [Mass ratio] 0.9 {ratio} 0.9-2.4 [facility] Work Phone: Serum or plasma calcium aaron urement (mass/volume)on 04-04-2022 Calcium [Mass/Vol] 8.6 mg/dL 8.5-10.1 [facility] Work Phone: Serum or plasma cholesterol in HDL measurement (mass/volume)on 04-04-2022 Cholesterol in HDL [Mass/Vol] 59 mg/dL >40 [facility] Work Phone: Comment on above: The drugs N-Acetylcysteine and Metamizol e may falsely depress this assay. Reference Range HDL <40 mg/dL Low HDL Cholesterol HDL >or= 60 mg/dL High HDL Cholesterol Serum or plasma cholesterol in VLDL measurement (mass/volume)on 04-04-2022 Cholesterol in VLDL [Mass/Vol] 37 mg/dL 5-40 [facility] Work Phone: Serum or plasma creatinine m easurement (mass/volume)on 04-04-2022 Creatinine [Mass/Vol] 0.92 mg/dL 0.70-1.30 [facility] Work Phone: Comment on above: The validity of the calculated GFR & GFR AA in patients over 70 years has not been determined. Clinical correlation is essential. Serum or plasma hepatitis C virus RNA measurement by probe and target amplification mon 04-04-2022 HCV RNA RENETTA+probe Qn [id number] IU/mL . [facility] Work Phone: Serum or plasma low density lipoprotein (LDL) cholesterol measurement (mass/volume)on 04-04-2022 Cholesterol in LDL [Mass/Vol] 56 mg/dL 0-130 [facility] Work Phone: Serum or plasma urea nitroge n measurement (mass/volume)on 04-04-2022 Urea nitrogen [Mass/Vol] 12 mg/dL 7-18 [facility] Work Phone: Thin prep Papanicolaou smear with manual screeningon 04-04-2022 Thin prep Papanicolaou smear with manual screening 26 U/L 15-37 [facility] Work Phone: Thin prep Papanicolaou smear with manual screening 6 5-15 [facility] Work Phone: Whole blood hemoglobin A1c/t otal hemoglobin ratio (mass fraction)on 04-04-2022 HbA1c (Bld) [Mass fraction] 5.4 % 3.8-5.6 [facility] Work Phone: Comment on above: Normal < 5.7 % Prediabetic 5.7 - 6.4 % D iabetic >or= 6.5 % Please note range changes. Luis Angel 01-13-2021 EMERGENCY PHYSICIAN REPORT This is a preliminary report only, as the practitioner review and authentication has not occurred. [facility] ER PHYSICIAN ASSESSMENT DEMOGRAPHICS [employer] Patient: COMFORT RAM Sex: M : 1970 Age: 50 yr Account No: [id number] Registration Date: 13:36 01/13/2021 Address: [address] [place] [address] Address: [place] [address] REGISTRATION ED Number: [id number] Marital Status: S Financial Class: [employer] TRIAGE Priority: 3 - Urgent Complaint: Abdominal Pain Stated Complaint: ABD PAIN, DX WITH HERNIA NOT SURE IF THIS IS CAUSING PAIN. PT REPORTS PRESSURE, DISTENDED, PT REPORT BELLY UPSET AND HAS BEEN TURNING - HOLDING HIS BELLLY. PT FROM [facility] CONCERNED ABOUT BOWEL OBSTRUCTION, TOLD BY [facility] HE HAS HERNIA. PT REPORTS THIS PAIN FOR APPROX 1 MONTH OFF AND ON. PT HAS BEEN TAKING GAS X - HELPED 2 WEEKS AGO BUT THEN PAIN RETURNED Arrival Date: 01/13/2021 13:36 Triage Date: 01/13/2021 14:03 Mode of Arrival: *Privately Owned Vehicle Transfer From: * Home WC: N Language: Scottish Transport: Ambulatory/Walk In [facility] PATIENT NAME: COMFORT RAM [address] MEDICAL REC #: [id number] [place] [address] EMERGENCY DEPARTMENT REPORT EMERGENCY DEPARTMENT PHYSICIAN BED A04 In: 01/13/2021 20:00:16 01/13/2021 20:00:16 ADORE A04 (Removed From) Out: 01/13/2021 20:11:26 01/13/2021 20:11:26 ADORE PROVIDERS KIAN MANCILLA Provider Contact: 01/13/2021 20:07:07 TCC End: . *Other Provider Contact: 01/13/2021 20:30:00 End: TRIAGE HISTORY ALLERGIES Allergic To: No Known Allergies 01/13/2021 14:08 CRW CURRENT MEDS Name: GAS X 01/13/2021 14:08 CRW ILLNESS Illness: *None 01/13/2021 14:08 CRW PAST SURGERY HIST Surgery: Appendectomy 01/13/2021 14:08 CRW Surgery: RIGHT FOOT SURGERY 01/13/2021 14:08 CRW PAST SOCIAL HIST Social History: Behavior age appropriate 01/13/2021 14:08 CRW Social History: Communicates without difficulty 01/13/2021 14:08 CRW Social History: Lives with family or significant other [facility] PATIENT NAME: COMFORT RAM [address] MEDICAL REC #: [id number] [place] [address] EMERGENCY DEPARTMENT REPORT EMERGENCY DEPARTMENT PHYSICIAN 01/13/2021 14:08 CRW Social History: Recreational Drugs - None 01/13/2021 14:08 CRW Social History: Alcohol - Occasional- 01/13/2021 14:08 CRW Social History: Smoker- 1/2 PPD 01/13/2021 14:08 CRW Social History: Denies Domestic Violence 01/13/2021 14:08 CRW Social History: Denies thoughts of self harm. 01/13/2021 14:08 CRW SELF TREATMENT Aid: [facility] VISIT 01/13/2021 14:08 CRW NURSING ASSESSMENT ASSESSMENT NOTES 01/13/2021 14:11 REPORTED PT HAD A LARGE BALL OF STOOL LAST NIGHT 01/13/2021 14:11 CRW TREATMENT MEDICATIONS IV I AND O VITALS [facility] PATIENT NAME: COMFORT RAM Cooper [address] MEDICAL REC #: [id number] [place] [address] EMERGENCY DEPARTMENT REPORT EMERGENCY DEPARTMENT PHYSICIAN VS-ROUTINE Time: 01/13/2021 14:09 B/P: 143/85 - Left Upper Arm - Sitting - Machine Pulse: 86 - Monitor Resp: 18 Sa02: 97 Room Air Temp: 98.00 F - Oral 01/13/2021 14:11 CRW VS-Pain Time: 01/13/2021 14:09 Pain Level: 0 01/13/2021 14:11 CRW VS-GCS Time: 01/13/2021 14:09 Visual: 4 Verbal: 5 Motor: 6 GCS Total: 15 01/13/2021 14:11 CRW VS-HT/WT Time: 01/13/2021 14:09 Ht: 71 in. Stated Weight: 230 lbs Stated 01/13/2021 14:11 CRW VS-Visual Time: 01/13/2021 14:09 01/13/2021 14:11 CRW VS-FHT Time: 01/13/2021 14:01/13/2021 14:11 CRW VS-Notes Time: 01/13/2021 14:09 MAP 107 01/13/2021 14:11 CRW ORDERS LBE 01/13/2021 21:03 N/A Ordered: 01/13/2021 21:03 By MINNIE HUGHES Reviewed: 01/13/2021 21:03 By MINNIE HUGHES DISCHARGE Diagnosis: LWT 0 01/13/2021 21:03 Disposition: Time: 01/13/2021 20:10 By: MINNIE HUGHES Discharge Time: 01/13/2021 20:10 Type: LBE Condition: LBE Concurred: 01/13/2021 21:03 By: ADORE called x 2 no answer. lbe Referral: 0 (more content not included)... [facility] 01-12-2021 [facility] DATE OF SERVICE: HISTORY OF PRESENT ILLNESS: A 50-year-old male with apparently 1 month progressive worsening constipation, nausea, chills. Apparently has had lower abdominal pain that has just been worsening. Decreased bowel movements, and he has descended. He is here with his . Has 9 out 10 abdominal pain. Has not had a colonoscopy ever. PAST MEDICAL HISTORY: Pneumonia. SOCIAL HISTORY: Positive smoking, positive alcohol. FAMILY HISTORY: Cancer. CURRENT ALLERGIES: None. REVIEW OF SYSTEMS: No fever, no chills. Just the stomach pain as described. PHYSICAL EXAMINATION: Blood pressure 156/93, pulse 89, respiratory rate 17, temp 98.7, pulse oximetry 97%. Pain 9 out of 10. Abdomen is descended. He has right lower quadrant mild suprapubic pain. He does appear to have reducible umbilical hernia. Decreased bowel sounds all 4 quadrants. DIAGNOSIS: Abdominal, distension, possible bowel obstruction. [facility] PATIENT NAME: COMFORT RAM [address] [address] MEDICAL REC #: [id number] [place] [address] [facility] RE[facility] PHYSICIAN PLAN: I referred him to [facility] for further evaluation. He is going down there by private vehicle. His will take him down there now by private vehicle. Rolando Flannery MD /[id number] SSI File#: [id number] END OF DOCUMENT / CHANGE LOG FOLLOWS Last Edited By Juan. Signed By Jarrett Flannery MD #IBRKH Jarrett Flannery MD #IBRKH on 01/18/2021 08:34 ET on 01/18/2021 08:34 ET Revision Number - 2 Verified/Reviewed by 01/18/[address] [facility] PATIENT NAME: COMFORT RAM [address] [address] [address] MEDICAL REC #: [id number] [place] [address] [facility] RE[facility] Text Normal [facility] Vital Signs Date Time Vital Sign Value Performing Clinician Facility 03-04-2024 19:20-0500 Diastolic Blood Pressure Non-Invasive 77 mm[Hg] DEVONTE HILL DO [facility] 03-04-2024 19:20-0500 Heart rate 82 /min DEVONTE RAMIREZ DO [facility] 03-04-2024 19:20-0500 Respiratory rate 18 /min DEVONTE RAMIREZ DO [facility] 03-04-2024 19:20-0500 Systolic Blood Pressure Non-Invasive 158 mm[Hg] DEVONTE RAMIREZ DO [facility] 03-04-2024 18:18-0500 Body temperature 96.98 [degF] DEVONTE RAMIREZ DO [facility] 03-04-2024 18:18-0500 Body weight 113.3 kg DEVONTE RAMIREZ DO [facility] 03-04-2024 18:18-0500 Diastolic Blood Pressure Non-Invasive 77 mm[Hg] DEVONTE RAMIREZ DO [facility] 03-04-2024 18:18-0500 Heart rate 89 /min DEVONTE RAMIREZ DO [facility] 03-04-2024 18:18-0500 Respiratory rate 18 /min DEVONTE RAMIREZ DO [facility] 03-04-2024 18:18-0500 Systolic Blood Pressure Non-Invasive 165 mm[Hg] DEVONTE RAMIREZ DO [facility] 09-21-2022 20:15-0400 Body temperature 99 [degF] Dr. Donna Novoa Work Phone: [facility] 09-21-2022 20:15-0400 Diastolic blood pressure 96 mm[Hg] Dr. Donna Novoa Work Phone: [facility] 09-21-2022 20:15-0400 Heart rate 63 /min Dr. Donna Novoa Work Phone: [facility] 09-21-2022 20:15-0400 Respiratory rate 16 /min Dr. Donna Novoa Work Phone: [facility] 09-21-2022 20:15-0400 SaO2% (BldA) [Mass fraction] 96 % Dr. Donna Novoa Work Phone: [facility] 09-21-2022 20:15-0400 Systolic blood pressure 155 mm[Hg] Dr. Donna Novoa Work Phone: [facility] 09-21-2022 14:17-0400 Body height 180.[address] Donna Novoa Work Phone: [facility] 09-21-2022 14:17-0400 Body mass index (BMI) [Ratio] 31.9 kg/m2 Dr. Donna Novoa Work Phone: [facility] 09-21-2022 14:17-0400 Body weight [address] Donna Novoa Work Phone: [facility] 08-11-2022 14:43-0400 Body mass index (BMI) [Ratio] 33.2 kg/m2 Dr. Donna Novoa Work Phone: [facility] 08-11-2022 14:43-0400 Body weight 108.[address] Donna Novoa Work Phone: [facility] 08-11-2022 14:43-0400 Diastolic blood pressure 103 mm[Hg] Dr. Donna Novoa Work Phone: [facility] 08-11-2022 14:43-0400 Heart rate 94 /min Dr. Donna Novoa Work Phone: [facility] 08-11-2022 14:43-0400 Respiratory rate 22 /min Dr. Donna Novoa Work Phone: [facility] 08-11-2022 14:43-0400 Systolic blood pressure 164 mm[Hg] Dr. Donna Novoa Work Phone: [facility] 08-04-2022 13:10-0400 Diastolic blood pressure 82 mm[Hg] Dr. Donna Novoa Work Phone: [facility] 08-04-2022 13:10-0400 Systolic blood pressure 150 mm[Hg] Dr. Donna Novoa Work Phone: [facility] 08-04-2022 10:59-0400 Body mass index (BMI) [Ratio] 33.6 kg/m2 Dr. Donna Novoa Work Phone: [facility] 08-04-2022 10:59-0400 Body temperature 97.6 [degF] Dr. Donna Novoa Work Phone: [facility] 08-04-2022 10:59-0400 Body weight 106.[address] Donna Novoa Work Phone: [facility] 08-04-2022 10:59-0400 Heart rate 84 /min Dr. Donna Novoa Work Phone: [facility] 08-04-2022 10:59-0400 Respiratory rate 18 /min Dr. Donna Novoa Work Phone: [facility] 08-04-2022 10:59-0400 SaO2% (BldA) [Mass fraction] 97 % Dr. Donna Novoa Work Phone: [facility] 03-31-2022 14:37-0500 Diastolic blood pressure 90 mm[Hg] Dr. Donna Novoa Work Phone: [facility] Work Phone: 03-31-2022 14:37-0500 Systolic blood pressure 178 mm[Hg] Dr. Donna Novoa Work Phone: [facility] Work Phone: 03-31-2022 13:35-0500 Body mass index (BMI) [Ratio] 34.8 kg/m2 Dr. Donna Novoa Work Phone: [facility] Work Phone: 03-31-2022 13:35-0500 Body temperature 97.9 [degF] Dr. Donna Novoa Work Phone: [facility] Work Phone: 03-31-2022 13:35-0500 Body weight 110.[address] Donna Novoa Work Phone: [facility] Work Phone: 03-31-2022 13:35-0500 Heart rate 93 /min Dr. Donna Novoa Work Phone: [facility] Work Phone: 03-31-2022 13:35-0500 Respiratory rate 16 /min Dr. Donna Novoa Work Phone: [facility] Work Phone: 03-31-2022 13:35-0500 SaO2% (BldA) [Mass fraction] 97 % Dr. Donna Novoa Work Phone: [facility] Work Phone: Encounters Encounter Date Encounter Type Care Provider Facility Start: 10-24-2024 ambulatory Florence Stewart Facility:[facility] Start: 06-28-2024 End: 06-28-2024 ambulatory Donna Novoa [facility] Start: 06-13-2024 End: 06-13-2024 ambulatory Donna Novoa [facility] Start: 05-16-2024 End: 05-16-2024 ambulatory Hamilton Saini Facility:[facility] Start: 03-04-2024 End: 03-04-2024 Emergency department patient visit DEVONTE RAMIREZ DO [facility] Start: 01-31-2024 End: 01-31-2024 ambulatory Donna Novoa Facility:[facility] Start: 01-31-2024 End: 01-31-2024 ambulatory Donna Nvooa Facility:[facility] Start: 01-10-2024 End: 01-10-2024 Emergency department patient visit Donna Novoa Facility:[facility] Start: 12-13-2023 End: 12-13-2023 ambulatory Hamilton Saini Facility:[facility] Start: 11-24-2023 End: 11-24-2023 ambulatory Donna Novoa Facility:[facility] Start: 11-01-2023 End: 11-01-2023 ambulatory Gianluca De Jesus Facility:[facility] Start: 10-24-2023 ambulatory Donna Novoa Facility :[facility] Start: 10-11-2023 ambulatory Donna Novoa Facility :[facility] Start: 09-27-2023 ambulatory Gianluca De Jesus Facility: [facility] Start: 09-27-2023 ambulatory Donnaoneal Novoa Facility :[facility] Start: 03-07-2023 End: 03-07-2023 ambulatory JAMESON ROJAS Facility: Start: 11-10-2022 End: 11-10-[address] Donna Novoa Work Phone: [facility] Work Phone: Start: 11-10-2022 End: 11-10-[address] Donna Novoa Work Phone: [facility] Specimen Work Phone: Start: 11-10-2022 End: 11-10-[address] Donna Novoa Work Phone: [facility] Work Phone: Start: 09-21-2022 Non-patient / Non-visit Dr. Donna Novoa Work Phone: [facility] Start: 09-21-2022 End: 09-21-2022 Admission to same day surgery center Dr. Donna Novoa Work Phone: [facility] Start: 09-21-2022 End: 09-21-[address] Donna Novoa Work Phone: [facility] Work Phone: Start: 08-12-2022 End: 08-12-[address] Donna Novoa Work Phone: [facility] Start: 08-11-2022 End: 08-11-[address] Donna Novoa Work Phone: [facility] Start: 08-04-2022 End: 08-04-[address] Donna Novoa Work Phone: [facility] Start: 04-26-2022 End: 04-26-2022 Emergency department patient visit [facility] Facility:B Start: 04-04-2022 End: 04-04-[address] Donna Novoa Work Phone: [facility] Work Phone: Start: 04-04-2022 End: 04-04-[address] Donna Novoa Work Phone: [facility] Start: 03-31-2022 End: 03-31-[address] Donna Novoa Work Phone: [facility] Start: 01-15-2021 Patient encounter procedure Jarrett Flannery MD Work Phone: [facility] Start: 01-15-2021 Progress Note Jarrett sullivan MD Work Phone: [facility] Procedures Date Procedure Procedure Detail Performing Clinician Start: 09-21-[address] Donna Novoa Work Phone: Start: 01-05-2017 Adult depression screening assessment Jarrett Flannery MD Work Phone: Appendectomy DEVONTE RAMIREZ DO ft (qualifier value) DEVONTE RAMIREZ DO History of appendectomy Hx of appendectom y Dr. Donna Novoa Work Phone: Plan of Treatment Date Care Activity Detail Author Start: 10-03-2022 LIPID SCREEN LIPID SCREEN [facility] Start: 09-21-2022 Colonoscopy w/biopsy single/multiple COLONOSCOPY AND BIOPSY [facility] Start: 09-21-2022 Colsc flx w/rmvl of tumor polyp lesion snare tq COLONOSCOPY W/LESION REMOVAL [facility] Start: 09-21-2022 Egd transoral biopsy single/multiple EGD BIOPSY SINGLE/MULTIPLE [facility] [facility] Start: 09-21-2022 Patient discharge [facility] Start: 03-31-2022 Patient referral [facility] Work Phone: Start: 12-16-2021 Influenza [facility] Start: 11-06-2021 DIABETES SCREEN DIABETES SCREEN [facility] Start: 2020 SHINGRIX VACCINE (1 of 2) SHINGRIX VACCINE (1 of 2) [facility] Start: 01-05-2018 Adult depression screening assessment DEPRESSION SCREENING [facility] Start: 07-02-2015 HEPATITIS A (2 of 3 - Hep A Twinrix risk 3-dose series) HEPATITIS A (2 of 3 - Hep A Twinrix risk 3-dose series) [facility] Start: 07-02-2015 HEPATITIS B (2 of 3 - Hep B Twinrix risk 3-dose series) HEPATITIS B (2 of 3 - Hep B Twinrix risk 3-dose series) [facility] Start: 06-23-2015 COLOGUARD (FIT-DNA) COLOGUARD (FIT-DNA) [facility] Start: 06-23-2015 Colonoscopy COLONOSCOPY [facility] Start: 06-23-2015 COLORECTAL CANCER SCREENING COLORECTAL CANCER SCREENING [facility] Start: 06-23-[address] COLONOGRAPHY [facility] Start: 06-23-2015 FECAL OCCULT BLOOD FECAL OCCULT BLOOD [facility] Start: 06-23-2015 SIGMOIDOSCOPY SIGMOIDOSCOPY [facility] Start: 04-18-2012 Urine microalbumin profile DTAP,TDAP,TD (1 - Tdap) [facility] Start: 1988 HIV SCREENING HIV SCREENING [facility] Start: 1976 PNEUMOCOCCAL (1 - PCV) PNEUMOCOCCAL (1 - PCV) [facility] Start: 06-23-1975 COVID-19 VACCINE (#1) COVID-19 VACCINE (#1) [facility] CT Abdomen and Pelvi s W contrast IV [facility] Work Phone: CT Abdomen and Pelvi s W contrast IV [facility] Patient referral [facility] Work Phone: Tobacco use cessatio n education [facility] Work Phone: Immunizations Immunization Date Immunization Notes Care Provider [facility] 01-06-2016 influenza virus vaccine, unspecified formulation DEVONTE RAMIREZ DO [facility] 01-06-2016 influenza, injectabl e, quadrivalent, contains preservative Jarrett Flannery MD Work Phone: [facility] 01-06-2016 influenza, seasonal, injectable Dr. Donna Novoa Work Phone: [facility] 06-04-2015 hepatitis A and hepatitis B vaccine Jarrett Flannery MD Work Phone: [facility] Work Phone: 06-04-2015 hepatitis B vaccine, unspecified formulation Jarrett Flannery MD Work Phone: [facility] 04-17-2012 tetanus and diphther ia toxoids, adsorbed, preservative free, for adult use (2 Lf of tetanus toxoid and 2 Lf of diphtheria toxoid) Jarrett Flannery MD Work Phone: [facility] Work Phone: 04-17-2012 tetanus and diphther ia toxoids, adsorbed, preservative free, for adult use (5 Lf of tetanus toxoid and 2 Lf of diphtheria toxoid) DEVONTE RAMIREZ DO Tali Danny [facility] Comment on above: Result Comment: [01/19/2021] per Impact Payers Date Payer Category Payer Unknown [id number] 2023 Unknown [id number] 2023 Self-pay 2022 Unknown [id number] 2018 Medicaid [place] [employer] [id number] 2018-Present [phone] [address] [place] [address] Medicaid [id number] 1970 Unknown [id number] 1970 Unknown [id number] Unknown [employer] EXCHANGE PLAN [id number] Unknown [id number] Unknown [id number] [id number] Unknown [id number] Unknown [id number] [id number] Unknown [id number] [id number] Unknown [id number] [id number] Unknown [id number] [id number] Unknown [id number] [id number] Unknown [id number] [id number] Unknown [id number] [id number] Unknown [id number] [id number] Unknown [id number] [id number] Unknown [id number] [id number] Unknown [id number] [id number] Unknown [id number] Social History Date Type Detail Facility Start: 05-25-1990 [facility] Start: 05-25-1990 History of tobacco use Cigarette Smo ker [facility] Start: 01-10-2019 Alcohol intake Current non-dr lap polisher of alcohol (finding) [facility] Start: 01-10-2019 Alcohol intake [facility] Start: 08-12-2015 History SDOH Alcohol Comment weekends. CAGE negative./ n o alcholol x 4 month [facility] Start: 1970 Sex Assigned At Not on file C [facility] Start: 03-31-2022 End: 11-10-2022 Tobacco smoking status MAIS Unknown if ever smoked [facility] Start: 1970 Sex Assigned At Male [facility] Start: 09-23-2018 Tobacco smoking status Heavy t obacco smoker (finding) [facility] Sex Assigned At Sex [facility] Goals Date Patient Goal Desired Activity /State Functional Status Date Assessment Result Facility 03-04-2024 Functional Status Standard Safet y ID band on, Call device within reach, Bed in low position, Wheels locked [facility] 09-21-2022 Functional status Ambulates [facility] Work Phone: Mental Status Date Assessment Result Facility 03-04-2024 Mental Status Orientation Oriented x 4 [facility] Tali Delgado 09-21-2022 Cognitive function Voice/Name Harriett Martínez [facility] Work Phone: Clinical Notes 06-30-2015 to 03-04-2024 Note Date & Type Note Facility 03-04-2024 Hospital Discharge instructions Patient Education 03/04/2024 18:44:48 Sciatica Sciatica Sciatica is a condition that causes pain in the lower back that spreads down into the buttock, hip, and leg. Sometimes the leg pain can happen without any back pain. Sciatica happens when a spinal nerve is irritated or has pressure put on it as comes out of the spinal canal in the lower back. This most often happens when a bulge or rupture of a nearby spinal disk presses on the nerve. Sciatica can also be caused by a narrowing of the spinal canal (spinal stenosis) or spasm of the muscle in the buttocks that the sciatic nerve passes through (pyriform muscle). Sciatica is also called lumbar radiculopathy. Sciatica may begin after a sudden twisting or bending force, such as in a car accident. Or it can happen after a simple awkward movement. In either case, muscle spasm often also happens. Muscle spasm makes the pain worse. A healthcare provider makes a diagnosis of sciatica from your symptoms and a physical exam. Unless you had an injury from a car accident or fall, you usually won t have X-rays taken at this time. This is because the nerves and disks in your back can t be seen on an X-ray. If the provider sees signs of a compressed nerve, you will need to schedule an MRI scan as an outpatient. Signs of a compressed nerve include loss of strength in a leg. Most sciatica gets better with medicine, exercise, and physical therapy. If your symptoms continue after at least 3 months of medical treatment, you may need surgery or injections to your lower back. Home care Follow these tips when caring for yourself at home: You may need to stay in bed the first few days. But as soon as possible, begin sitting up or walking. This will help you avoid problems that come from staying in bed for long periods. When in bed, try to find a position that is comfortable. A firm mattress is best. Try lying flat on your back with pillows under your knees. You can also try lying on your side with your knees bent up toward your chest and a pillow between your knees. Avoid sitting for long periods. This puts more stress on your lower back than standing or walking. Use heat from a hot shower, hot bath, or heating pad to help ease pain. Massage can also help. You can also try using an ice pack. You can make your own ice pack by putting ice cubes in a plastic bag. Wrap the bag in a thin towel. Try both heat and cold to see which works best. Use the method that feels best for 20 minutes several times a day. You may use acetaminophen or ibuprofen to ease pain, unless another pain medicine was prescribed. Note: If you have chronic liver or kidney disease, talk with your healthcare provider before taking these medicines. Also talk with your provider if you ve had a stomach ulcer or gastrointestinal bleeding. Use safe lifting methods. Don t lift anything heavier than 15 pounds until all of the pain is gone. Follow-up care Follow up with your healthcare provider, or as advised. You may need physical therapy or additional tests. If X-rays were taken, a radiologist will look at them. You will be told of any new findings that may affect your care. When to seek medical advice Call your healthcare provider right away if any of these occur: Pain gets worse even after taking prescribed medicine Weakness or numbness in 1 or both legs or hips Numbness in your groin or genital area You can t control your bowel or bladder Fever Redness or swelling over your back or spine [id number] [employer]. [address] [place] [address]. All rights reserved. This information is not intended as a substitute for professional medical care. Always follow your healthcare professional's instructions. Follow Up Care 03/04/2024 18:17:28 With:THERESA HIGUERA DO Address: [address] [facility] [place] [address]- [phone] When:2-4 days [facility] 03-04-2024 Note Discharge Instructions Thank you for allowing [facility] to assist you with your healthcare needs. The following is important discharge information regarding your hospital visit. What to Do Next Instructions from Your Care Team No qualifying data available. Post Acute Orders No qualifying data available. You Need to Schedule the Following Appointments Follow Up with THERESA HIGUERA DO When:Within 2-4 days Where:[address] [facility] [place] [address]- [phone] Allergies NKA Medications Please ask your primary doctor or pharmacist before taking any other medication not listed, including over the counter drugs, herbal medications, vitamins and or supplements as they may interact with your home medications. What How Much When Instructions Last Dose New cyclobenzaprine (cyclobenzaprine 5 mg oral tablet) 1 tab(s) by mouth Three (3) times a day Duration: 7 Days Printed Prescription New lidocaine topical (lidocaine 5% topical patch) 1 patch(es) Transdermal Every day Printed Prescription Unchanged lisinopril (lisinopril 10 mg oral tablet) 1 tab(s) by mouth Every day Unchanged meloxicam (meloxicam 15 mg oral tablet) 1 tab(s) by mouth Once a day Unchanged omeprazole (omeprazole 20 mg oral delayed release capsule) Unchanged sofosbuvir-velpatasvir (sofosbuvir-velpatasvir 400 mg-100 mg oral tablet) 1 tab(s) by mouth Once a day Please take this list to your next doctor s visit. Bring all medications you take, including over the counter medications, herbals and other supplements with you to your doctor s visit. Patients and families are reminded to discard old lists and to update any records with all medication providers or retail pharmacies. Medication Leaflets cyclobenzaprine (katharine moore) Zulema, Myriamxmid What is the most important information I should know about cyclobenzaprine? You should not use cyclobenzaprine if you have a thyroid disorder, heart block, congestive heart failure, a heart rhythm disorder, or you have recently had a heart attack. Do not use cyclobenzaprine if you have taken an MAO inhibitor in the past 14 days, such as isocarboxazid, linezolid, phenelzine, rasagiline, selegiline, or tranylcypromine. What is cyclobenzaprine? Cyclobenzaprine is a muscle relaxant. It works by blocking nerve impulses (or pain sensations) that are sent to your brain. Cyclobenzaprine is used together with rest and physical therapy to relieve muscle spasms caused by painful conditions such as an injury. Cyclobenzaprine may also be used for purposes not listed in this medication guide. What should I discuss with my healthcare provider before taking cyclobenzaprine? You should not use cyclobenzaprine if you are allergic to it, or if you have: a thyroid disorder; heart block, heart rhythm disorder, congestive heart failure; or if you have recently had a heart attack. Cyclobenzaprine is not approved for use by anyone younger than 15 years old. Do not use cyclobenzaprine if you have taken an MAO inhibitor in the past 14 days. A dangerous drug interaction could occur. MAO inhibitors include isocarboxazid, linezolid, phenelzine, rasagiline, selegiline, and tranylcypromine. Some medicines can interact with cyclobenzaprine and cause a serious condition called serotonin syndrome. Be sure your doctor knows if you also take stimulant medicine, opioid medicine, herbal products, or medicine for depression, mental illness, Parkinson's disease, migraine headaches, serious infections, or prevention of nausea and vomiting. Ask your doctor before making any changes in how or when you take your medications. Tell your doctor if you have ever had: liver disease; glaucoma; enlarged prostate; or problems with urination. It is not known whether this medicine will harm an unborn baby. Tell your doctor if you are or plan to become . It may not be safe to breast-feed while using this medicine. Ask your doctor about any risk. Older adults may be more sensitive to the effects of this medicine. How should I take cyclobenzaprine? Follow all directions on your prescription label and read all medication guides or instruction sheets. Your doctor may occasionally change your dose. Use the medicine exactly as directed. Cyclobenzaprine is usually taken once daily for only 2 or 3 weeks. Follow your doctor's dosing instructions very carefully. Swallow the capsule whole and do not crush, chew, break, or open it. Take the medicine at the same time each day. Call your doctor if your symptoms do not improve after 3 weeks, or if they get worse. Store at room temperature away from moisture, heat, and light. What happens if I miss a dose? Take the medicine as soon as you can, but skip the missed dose if it is almost time for your next dose. Do not take two doses at one time. What happens if I overdose? Seek emergency medical attention or call the Poison Help line at . An overdose of cyclobenzaprine can be fatal. Overdose symptoms may include severe drowsiness, vomiting, fast heartbeats, tremors, agitation, or hallucinations. What should I avoid while taking cyclobenzaprine? Avoid driving or hazardous activity until you know how this medicine will affect you. Your reactions could be impaired. Avoid drinking alcohol. Dangerous side effects could occur. What are the possible side effects of cyclobenzaprine? Get emergency medical help if you have signs of an allergic reaction: hives; difficult breathing; swelling of your face, lips, tongue, or throat. Stop using cyclobenzaprine and call your doctor at once if you have: fast or irregular heartbeats; chest pain or pressure, pain spreading to your jaw or shoulder; or sudden numbness or weakness (especially on one side of the body), slurred speech, balance problems. Seek medical attention right away if you have symptoms of serotonin syndrome, such as: agitation, hallucinations, fever, sweating, shivering, fast heart rate, muscle stiffness, twitching, loss of coordination, nausea, vomiting, or diarrhea. Serious side effects may be more likely in older adults. Common side effects may include: drowsiness, tiredness; headache, dizziness; dry mouth; or upset stomach, nausea, constipation. This is not a complete list of side effects and others may occur. Call your doctor for medical advice about side effects. You may report side effects to FDA at 2-265-QBO-4323. What other drugs will affect cyclobenzaprine? Using cyclobenzaprine with other drugs that make you drowsy can worsen this effect. Ask your doctor before using opioid medication, a sleeping pill, a muscle relaxer, or medicine for anxiety or seizures. Tell your doctor about all your other medicines, especially: bupropion (Zyban, for smoking cessation); meperidine; tramadol; verapamil; cold or allergy medicine that contains an antihistamine (Benadryl and others); medicine to treat Parkinson's disease; medicine to treat excess stomach acid, stomach ulcer, motion sickness, or irritable bowel syndrome; medicine to treat overactive bladder; or bronchodilator asthma medication. This list is not complete. Other drugs may affect cyclobenzaprine, including prescription and [id number] medicines, vitamins, and herbal products. Not all possible drug interactions are listed here. Where can I get more information? Your pharmacist can provide more information about cyclobenzaprine. Remember, keep this and all other medicines out of the reach of children, never share your medicines with others, and use this medication only for the indication prescribed. Every effort has been made to ensure that the information provided by [employer]. ('[employer]') is accurate, up-to-date, and complete, but no guarantee is made to that effect. Drug information contained herein may be time sensitive. [employer] information has been compiled for use by healthcare practitioners and consumers in the [place] and therefore [employer] does not warrant that uses outside of the [place] are appropriate, unless specifically indicated otherwise. [employer] drug information does not endorse drugs, diagnose patients or recommend therapy. [employer] drug information is an informational resource designed to assist licensed healthcare practitioners in caring for their patients and/or to serve consumers viewing this service as a supplement to, and not a substitute for, the expertise, skill, knowledge and judgment of healthcare practitioners. The absence of a warning for a given drug or drug combination in no way should be construed to indicate that the drug or drug combination is safe, effective or appropriate for any given patient. [employer] does not assume any responsibility for any aspect of healthcare administered with the aid of information [employer] provides. The information contained herein is not intended to cover all possible uses, directions, precautions, warnings, drug interactions, allergic reactions, or adverse effects. If you have questions about the drugs you are taking, check with your doctor, nurse or pharmacist. Copyright 0789-6775 [employer]. Version: 7.01. Revision Date: 11/18/2022. lidocaine topical (LYE muro kemp TOP i yanira) AneCream, Bactine, Glydo, Lidoderm, LidoRx, Medi-Quik Holmen, RadiaGuard, RectiCare, Regenecare FRANCOIS Holmen, Solarcaine Cool Aloe What is the most important information I should know about lidocaine topical? An overdose of numbing medicine can cause fatal side effects if too much of the medicine is absorbed through your skin. Do not use large amounts of lidocaine topical, or cover treated skin areas with a bandage or plastic wrap without medical advice. Keep both used and unused lidocaine skin patches out of the reach of children or pets. The amount of lidocaine in the skin patches could be harmful to a child or pet who accidentally sucks on or swallows the patch. What is lidocaine topical? Lidocaine is a local anesthetic (numbing medication). There are many brands and forms of lidocaine available. Not all brands are listed on this leaflet. Lidocaine topical (for use on the skin) is used to reduce pain or discomfort caused by skin irritations such as sunburn, insect bites, poison ruddy, poison oak, poison sumac, and minor cuts, scratches, or lopez. Lidocaine topical is also used to treat rectal discomfort caused by hemorrhoids. Lidocaine intradermal device can be used in minor medical procedures such as venipuncture or peripheral intravenous cannulation. Lidocaine topical may also be used for purposes not listed in this medication guide. What should I discuss with my healthcare provider before using lidocaine topical? You should not use lidocaine topical if you are allergic to any type of numbing medicine. Fatal overdoses have occurred when numbing medicines were used without the advice of a medical doctor (such as during a cosmetic procedure like laser hair removal). However, overdose has also occurred in women treated with a numbing medicine before having a mammography. Be aware that many cosmetic procedures are performed without a medical doctor present. Tell your doctor if you have ever had: a blood cell disorder called methemoglobinemia (in you or a family member); liver disease; or if you take a heart rhythm medicine. Tell your doctor if you are or . If you apply lidocaine topical to your chest, avoid areas that may come into contact with the baby's mouth. How should I use lidocaine topical? Use this medicine exactly as directed on the label, or as it has been prescribed by your doctor. Do not apply this medicine in larger amounts than recommended. Improper use of lidocaine topical may result in . Lidocaine topical comes in many different forms (gel, spray, cream, lotion, ointment, liquid, skin patch, and others). Do not take by mouth. Topical medicine is for use only on the skin. If this medicine gets in your eyes, nose, mouth, rectum, or vagina, rinse with water. Read and carefully follow any Instructions for Use provided with your medicine. Ask your doctor or pharmacist if you do not understand these instructions. Use the smallest amount of medicine needed to numb the skin or relieve pain. Your body may absorb too much of this medicine if you use too much, if you apply it over large skin areas, or if you apply heat, bandages, or plastic wrap to treated skin areas. Skin that is cut or irritated may also absorb more topical medication than healthy skin. Do not apply this medicine to swollen skin areas or deep puncture wounds. Avoid using the medicine on skin that is raw or blistered, such as a severe burn or abrasion. Do not cover treated skin unless your doctor has told you to. Lidocaine topical may be applied with your finger tips or a cotton swab. Lidocaine intradermal device is applied by a healthcare provider. Store at room temperature away from moisture and heat. Keep both used and unused lidocaine topical skin patches out of the reach of children or pets. The amount of lidocaine in the skin patches could be harmful to a child or pet who accidentally sucks on or swallows the patch. Seek emergency medical attention if this happens. What happens if I miss a dose? Since lidocaine topical is used when needed, you may not be on a dosing schedule. Skip any missed dose if it's almost time for your next dose. Do not use two doses at one time. What happens if I overdose? Seek emergency medical attention or call the Poison Help line at . An overdose of numbing medicine can cause fatal side effects if too much of the medicine is absorbed through your skin and into your blood. Overdose symptoms may include uneven heartbeats, seizure (convulsions), slowed breathing, coma, or respiratory failure (breathing stops). Lidocaine applied to the skin is not likely to cause an overdose unless you apply more than the recommended dose. What should I avoid while using lidocaine topical? Avoid touching the sticky side of a lidocaine skin patch while applying it. Avoid accidentally injuring treated skin areas while they are numb. Avoid coming into contact with very hot or very cold surfaces. What are the possible side effects of lidocaine topical? Get emergency medical help if you have signs of an allergic reaction: hives; difficulty breathing; swelling of your face, lips, tongue, or throat. Call your doctor at once if you have: severe headache or vomiting; severe burning, stinging, or irritation where the medicine was applied; swelling or redness; sudden dizziness or drowsiness after medicine is applied; confusion, problems with speech or vision, ringing in your ears; or unusual sensations of temperature. Common side effects include: mild irritation where the medication is applied; or numbness in places where the medicine is accidentally applied. This is not a complete list of side effects and others may occur. Call your doctor for medical advice about side effects. You may report side effects to FDA at 8-433-FMN-0367. What other drugs will affect lidocaine topical? Medicine used on the skin is not likely to be affected by other drugs you use. But many drugs can interact with each other. Tell each of your health care providers about all medicines you use, including prescription and dutb-kva-hmztuoz medicines, vitamins, and herbal products. Where can I get more information? Your pharmacist can provide more information about lidocaine topical. Remember, keep this and all other medicines out of the reach of children, never share your medicines with others, and use this medication only for the indication prescribed. Every effort has been made to ensure that the information provided by [employer]. ('[employer]') is accurate, up-to-date, and complete, but no guarantee is made to that effect. Drug information contained herein may be time sensitive. [employer] information has been compiled for use by healthcare practitioners and consumers in the [place] and therefore [employer] does not warrant that uses outside of the [place] are appropriate, unless specifically indicated otherwise. [employer] drug information does not endorse drugs, diagnose patients or recommend therapy. [employer] drug information is an informational resource designed to assist licensed healthcare practitioners in caring for their patients and/or to serve consumers viewing this service as a supplement to, and not a substitute for, the expertise, skill, knowledge and judgment of healthcare practitioners. The absence of a warning for a given drug or drug combination in no way should be construed to indicate that the drug or drug combination is safe, effective or appropriate for any given patient. [employer] does not assume any responsibility for any aspect of healthcare administered with the aid of information [employer] provides. The information contained herein is not intended to cover all possible uses, directions, precautions, warnings, drug interactions, allergic reactions, or adverse effects. If you have questions about the drugs you are taking, check with your doctor, nurse or pharmacist. Copyright 3781-0413 [employer]. Version: .. Revision Date: 01/04/2023. Education Materials Sciatica Sciatica is a condition that causes pain in the lower back that spreads down into the buttock, hip, and leg. Sometimes the leg pain can happen without any back pain. Sciatica happens when a spinal nerve is irritated or has pressure put on it as comes out of the spinal canal in the lower back. This most often happens when a bulge or rupture of a nearby spinal disk presses on the nerve. Sciatica can also be caused by a narrowing of the spinal canal (spinal stenosis) or spasm of the muscle in the buttocks that the sciatic nerve passes through (pyriform muscle). Sciatica is also called lumbar radiculopathy. Sciatica may begin after a sudden twisting or bending force, such as in a car accident. Or it can happen after a simple awkward movement. In either case, muscle spasm often also happens. Muscle spasm makes the pain worse. A healthcare provider makes a diagnosis of sciatica from your symptoms and a physical exam. Unless you had an injury from a car accident or fall, you usually won t have X-rays taken at this time. This is because the nerves and disks in your back can t be seen on an X-ray. If the provider sees signs of a compressed nerve, you will need to schedule an MRI scan as an outpatient. Signs of a compressed nerve include loss of strength in a leg. Most sciatica gets better with medicine, exercise, and physical therapy. If your symptoms continue after at least 3 months of medical treatment, you may need surgery or injections to your lower back. Home care Follow these tips when caring for yourself at home: You may need to stay in bed the first few days. But as soon as possible, begin sitting up or walking. This will help you avoid problems that come from staying in bed for long periods. When in bed, try to find a position that is comfortable. A firm mattress is best. Try lying flat on your back with pillows under your knees. You can also try lying on your side with your knees bent up toward your chest and a pillow between your knees. Avoid sitting for long periods. This puts more stress on your lower back than standing or walking. Use heat from a hot shower, hot bath, or heating pad to help ease pain. Massage can also help. You can also try using an ice pack. You can make your own ice pack by putting ice cubes in a plastic bag. Wrap the bag in a thin towel. Try both heat and cold to see which works best. Use the method that feels best for 20 minutes several times a day. You may use acetaminophen or ibuprofen to ease pain, unless another pain medicine was prescribed. Note: If you have chronic liver or kidney disease, talk with your healthcare provider before taking these medicines. Also talk with your provider if you ve had a stomach ulcer or gastrointestinal bleeding. Use safe lifting methods. Don t lift anything heavier than 15 pounds until all of the pain is gone. Follow-up care Follow up with your healthcare provider, or as advised. You may need physical therapy or additional tests. If X-rays were taken, a radiologist will look at them. You will be told of any new findings that may affect your care. When to seek medical advice Call your healthcare provider right away if any of these occur: Pain gets worse even after taking prescribed medicine Weakness or numbness in 1 or both legs or hips Numbness in your groin or genital area You can t control your bowel or bladder Fever Redness or swelling over your back or spine [id number] [employer]. [address] [place] [address], [place] [address]. All rights reserved. This information is not intended as a substitute for professional medical care. Always follow your healthcare professional's instructions. Additional Information VACCINATE! IT SAVES LIVES! Members of the community who have not yet received the COVID-19 vaccine and would like to receive it can visit one of [facility] vaccine clinics. There are many vaccine clinic locations within the [facility]. For locations and available times, please visit [email or web address] [email or web address] It is important to note that some COVID mobile vaccine clinics are held outdoors and may be canceled in rainy or stormy conditions. To learn more about pediatric vaccinations (ages 5-11), we invite you to visit the [facility] webpage. https://www.[email or web address].org/pa ges/4154-Oqgov-Fswzjgrlqju-Freque ccam-Gsfla-Lyljtdpks.html To learn more about the COVID-19 vaccine, we invite you to visit the CDC website for a list of frequently asked questions. https://www.cdc.gov/coronavirus/2 019-ncov/vaccines/faq.html [facility] Patient Portal Access Instructions: Stay connected with your healthcare team and access your personal medical information anytime with the [facility] Patient Portal. If you would like a full copy of your medical records please contact the [facility] Medical Records Department Monday through Monday between 8a.m. and 4:30p.m. Please follow the directions below to access the portal: 1.Access the email account you provided upon registration to the [facility].2.Look for an invitation email from [facility].3.Open the email and access the invitation link: Accept Invitation to [facility]4.Fill in the required christian to create your account. Sign into [email or web address] with your username and password that you created in the above steps to stay up to date. You can then view a summary of results, a summary of your visits, and the ability to download your summaries to your computer or send the information securely to a physician. Remember that your healthcare information is confidential, so carefully consider who you will allow to register on the [facility] Patient Portal for access to your information. You can also access the [facility] Patient Portal on the [employer] azalia. Simply click on Health Records under Health Data and then click on the [employer] logo. HOW TO SAFELY DISPOSE OF PRESCRIPTION MEDICATIONS Please use one of the following methods to safely dispose of your unused medications. 1.Use a drug disposal kit: the drug disposal pouch allows you to safely discard your old and unused drugs. Ask your nurse to give you one when you are discharged.2.Visit a local take-back location: Many local pharmacies and police departments have programs that collect old and unwanted prescription drugs. Call your local pharmacy or go to http://NewHound.e Health Access/8E0Pz4h to find one close to you.3.Make use of household items: Use cat litter or old coffee grounds to dispose medications if other options are not available. Mix your drugs with these household products, seal them in an airtight container and throw it into the garbage. Call [facility]: [phone] to be sure your drugs can be disposed of in this way. Some medicines may require a different approach.4.Never flush your medications down the toilet. IF YOU HAVE BEEN PRESCRIBED AN OPIOIDS FOR PAIN If you have been prescribed an opioid (such as hydrocodone, oxycodone or morphine), it is critical to understand the possible side effects and risks of opioid pain medications. Even when taken as directed, opioids can have several side effects including: Tolerance, meaning you might need to take more of a medication for the same pain relief. Nausea, vomiting and/or constipation. Sleepiness, dizziness, dry mouth, confusion, depression or itching. Physical dependence, meaning you have withdrawal symptoms when a medication is stopped ? this can develop within a few days. KNOW YOUR RESPONSIBILITIES It is important to know exactly how much and how often to take the opioid pain medications you are prescribed. Never take opioids in higher amounts or more often than prescribed. Do not combine opioids with alcohol or other drugs that cause drowsiness, such as benzodiazepines, also known as benzos, including diazepam and alprazolam, muscle relaxants or sleep aids. Never sell or share prescription opioids. This is illegal. Store opioids in a secure place and out of reach of others (including children, family, friends and visitors). The last page(s) of this document has been signed and retained as a CHART COPY Signatures Patient Education Materials Sciatica Medication Leaflets cyclobenzaprine, lidocaine topical My discharge plan and instructions have been reviewed and explained to me and ICARLENE LARRY D understand my current condition and have read and understand these discharge instructions. I have received a written copy of the plan/instructions. If I have questions, I am aware that I should contact my doctor. 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 Signature: Date/Time: Relationship to Patient: ____ Witness Name/Signature: Date/Time: [facility] 06-07-2023 Procedure note [facility] 09-21-2022 Procedure note [facility] 09-21-2022 Procedure note [facility] 09-21-2022 Procedure note [facility] 09-21-2022 History and physi royce note Note Date/Time September 21, 2022 5:58pm [facility] Medical Records Department [address] [place] [address] History & Physical Exam 09/21/22 1757 MR#: [id number] Acct: [id number] Name: COMFORT RAM Rep #:[id number] : 1970 52 From: Gianluca Gamboa PCP: Dr. Donna Novoa MD Status:[facility] Location: [place] [address] History and Physical Date of Admission: 09/21/22 Date of Service:? 08/11/22 MR#: [id number] Acct: [id number] Name:? COMFORT RAM Rep #: [id number] : 1970 ? ? Provider: Dr. Gianluca De Jesus MD Age/Sex:? 52/M ? ? Location: [facility] [address] Status: Signed Intake Vital Signs ? 08/11/2313:43 Height 5 ft 11 in Weight: 238 lb 2 oz BMI 33.2 BP 164/103 H Blood Pressure Location Lt radial Position Sitting Respiration 22 H Pulse 94 Intake Visit Reasons:?Umbilical hernia/C-SCOPE Chief Complaint: hernia sx Allergies No Known Allergies Allergy (Unverified 08/11/22 14:44) Medications lisinopril 5 mg tablet 5 mg PO DAILY #30 tabs 08/04/22 [Rx Confirmed 08/11/22] PFSH Medical History? Fracture of right heel History of drug overdose Surgical History? Hx of appendectomy Hx of foot surgery Family History?(Updated 08/11/22 @ 14:41 by Claribel Aceves) Father Cancer ?? ? lungGrandfather Stomach cancer Social History? household members:? friend(s) housing:? house current occupational status:? unemployed Smoking Status:? Current every day smoker tobacco type: cigarettes Electronic Cigarette Use:? not used quit status:? considering quitting alcohol intake:? former year quit: 2017 substance use type:? 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 weight training frequency:? other details: STOPPED RECENTLY DUE TO POSSIBLE HERNIA seatbelt use:? always do you feel safe at home:? Yes HPI HPI HPI: Patient is a 52-year-old male who presents for need to schedule screening colonoscopy secondary to age and absence of prior screening colonoscopy.? They are referred for surgical consultation from [place].? Patient has not had prior colonoscopy.? Patient has no personal history of colon cancer, inflammatory bowel disease, or diverticulitis. They describe their bowel habits as fraught with mild frequent constipation.? They have approximately 1 bowel movement everycouple of days and sometimes requiring significant straining.? They describe stools are occasionally representing as little arcenio and sometimes formed.? They have not noticed recent bleeding or dark stools. Patient has no family history of inflammatory bowel disease or diverticulitis, but patient states it is possible his father had colon cancer as he believes he had 2 types of cancer?1 of those being lung cancer he notes that his father passed at the age of 52.? ? He also reports that his grandfather had a diagnosisof stomach cancer. The patient's weight is not stable and he reports some recent weight loss. The patient is not prescribed anticoagulants/blood thinners. Relevant prior abdominal surgical history includes: Laparoscopic appendectomy approximately 40 years ago Patient does have a significant history of gastroesophageal reflux.? He states this has been present for at least 6 years.? He states he previously took Nexiumwith good effect and that his symptoms eased up to the point that he is now able to take Tums to prevent his symptoms.? He reports taking those Tums once every day.? He also is avoiding spicy foods.? He consumes caffeine through coffee and tea.? He notes that he cannot lay flat on the account of his symptomswe will experience reflux.? He denies any difficulty swallowing.? He has no history of a prior upper endoscopy. Patient also presents for a complaint of umbilical hernia.? This finding was first noticed by patient approximately 1 year ago.? Patient is not able to recall how this occurred.? He states he previously worked at [employer] and did lots of regular heavy lifting, but he is unable to recall a specific incident that led to his symptoms.? He only knows that 1 day he woke up with a gassy and bloated feeling and could not walk.? Accompanying the symptoms, he reports a bloody bowel movement, but this presentation was self-limited as he states he has not experienced any bleeding per rectum since this event.? He states he presented to an emergency department in [place] and was toldthis was likely gas pains.? However, over the ensuing months he has noticed a growth in this area and states that it has just now started to bulge.? He reports that the area occasionally becomes hard and more tender, but it is always able to go back in. Patient has a personal history of smoking.? He states that this tobacco habit has been present for the last 16 years and that he has averaged approximately 1/2 pack/day (he is currently at 1/4 pack/day, but at his maximum was smoking 1 pack/day).? He reports that he is actively trying to quit this habit.? Patient also believes he has a personal history of staph infections that cleared with antibiotics. Patient has a history of hepatitis C virus, but is uncertain how he contracted it.? He acknowledges that he needs to treat it. Pertinent surgical history includes: Laparoscopic appendectomy approximately 40 years ago Exam Const General: cooperative and anxious Orientation: alert, awake and oriented x3 Resp Effort & Inspection: normal respiratory effort Cardio Rate: regular rate Rhythm: regular rhythm GI Other: Umbilical hernia is present with some thinning of the overlying umbilical skin.?The hernia contents are primarily fatty and are reducible with some effort.? Patient does have tenderness with this process.? As best as I can palpate (givenpatient's voluntary guarding due to discomfort) this fascial defect measures approximately 3 cm in width Assessment and Plan Assessment and Plan (1) Umbilical hernia: ?Status:?Chronic ?Qualifiers: ?Obstruction and gangrene presence:?without obstruction or gangrene? Qualified Code(s):?K42.9 - Umbilical hernia without obstruction or gangrene ?Comment: This is a 52-year-old male who presents with a umbilical hernia that has been present for at least the past 1 year.? He has some intermittent pain from this hernia and has experienced some growth.? On exam, the defect for this hernia appears to be approximately 3 cm and the hernia is reducible with some effort.? Per EMR patient has had a CT scan requested previously, but was noncompliant to have it completed.? Patient insist that the CT scan was due to be completed in October as this was the first available date that he was given by radiology, but in my review of the EMR I do not see a study scheduled.? I would like to see this study completed since patient is not well tolerating of a complete exam to get a clear idea of how large the hernia we would be addressing.? Additional concerns related to patient's ongoing physically demanding work, ongoing tobaccouse, and reports of possible staph infections previously. ?Plan: ? Obtain CT imaging of the abdomen and pelvis for hernia and have patient returnto clinic for preoperative discussions ? Smoking cessation encouraged ? Patient would require MRSA PCR prior to posting of case ? Patient provided warning signs of acute hernia incarceration/strangulation andadvised to present for emergent evaluation should these be experienced (2) Encounter for screening for malignant neoplasm of colon: ?Status:?Acute ?Comment: Patient is a 52-year-old male with no prior colonoscopy.? Overall he appears to be at average risk for colon cancer, but may be at somewhat increased risk of his very undetermined reports of a family history with his father are accurate.?Patient describes some intermittent constipation, but denies any other alarm symptoms.? He repeatedly references that his grandfather passed of stomach cancer and he is concerned until he takes these preventative measures. ?Plan: Plan for screening colonoscopy under local [facility] with 2-day prep (given patient's history of constipation).? 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 (3) GERD (gastroesophageal reflux disease): ?Status:?Chronic ?Comment: Patient additionally reports an at least 6-year history of regular reflux symptoms.? Given this history, his age greater than 50, race, and tobacco use a diagnostic EGD is indicated.? He also reports a history of stomachcancer in his paternal grandfather.? Therefore, this recommendation was extendedpatient and he readily accepts. ?Plan: Diagnostic EGD to be performed concurrent with screening colonoscopy as above I have examined the patient and the H&P has been reviewed. There are no clinicalchanges since date of exam. Patient reports that he did complete his prep successfully for today's procedure as well and that his output is now clear. Proceed to the endoscopy suite for planned upper and lower endoscopy as discussed above. 09/21/22 1758 <Electronically signed by Gianluca De Jesus MD> Cosigner Signature (if applicable): CC: Dr. Donna Novoa MD; Dr. Gianluca De Jesus MD~ Signed [facility] Work Phone: [phone]) 647-282510-01-2021 History of Present illness Narrative* Jarrett Flannery MD - 01/15/2021 9:55 AM EDT DATE OF SERVICE: 01/12/2021 HISTORY OF PRESENT ILLNESS: A 50-year-old male with apparently 1 month progressive worsening constipation, nausea, chills. Apparently has had lower abdominal pain that has just been worsening. Decreased bowel movements, and he has descended. He is here with his . Has 9 out 10 abdominal pain. Has not had a colonoscopy ever. PAST MEDICAL HISTORY: Pneumonia. SOCIAL HISTORY: Positive smoking, positive alcohol. FAMILY HISTORY: Cancer. CURRENT ALLERGIES: None. REVIEW OF SYSTEMS: No fever, no chills. Just the stomach pain as described. PHYSICAL EXAMINATION: Blood pressure 156/93, pulse 89, respiratory rate 17, temp 98.7, pulse oximetry 97%. Pain 9 out of 10. Abdomen is descended. He has right lower quadrant mild suprapubic pain. He does appear to have reducible umbilical hernia. Decreased bowel sounds all 4 quadrants. DIAGNOSIS: Abdominal, distension, possible bowel obstruction. PLAN: I referred him to [facility] ER for further evaluation. He is going down there by private vehicle. His will take him down there now by private vehicle. MD GISSELLE Love/[id number] SSI File#: [id number] END OF DOCUMENT / CHANGE LOG FOLLOWS Last Edited By [employer]c. Signed By Jarrett Flannery MD #IBRKH Jarrett Flannery MD #IBRKH on 01/18/2021 08:34 ET on 01/18/2021 08:34 ET Revision Number - 2 ^^^ Verified/Reviewed by 01/18/[address] [facility] PATIENT NAME: COMFORT RAM [address] [facility] [address] [place] MEDICAL REC #: [id number] [place] [address] [place] [facility] RE[facility] STAT[facility]ARE PHYSICIAN documented [facility] NoteHNO ID: [id number] Author: Patricia Duenas PSS Service: ? Author Type: ? Type: Progress Notes Filed: 10/08/2020 1:42 PM Note Text: Patient has no voicemail setup Mailed letter Patricia Duenas [facility]06-16-2021 NoteHNO ID: [id number] Author: Aline Gage Pss Service: ? Author Type: ? Type: Progress Notes Filed: 09/30/2020 4:15 PM Note Text: .1st failed attempt to contact patient. Unable to leave a message no voice mail setup. Aline Gage [facility] NoteHNO ID: [id number] Author: Viry Mcintyre RN Service: ? Author Type: Registered Nurse Type: Progress Notes Filed: 09/30/2020 3:38 PM Note Text: Please see below note. Encounter closed in error. Viry Mcintyre RNSelect Medical Specialty [facility] NoteHNO ID: [id number] Author: Viry Mcintyre RN Service: ? Author Type: Registered Nurse Type: Progress Notes Filed: 09/30/2020 3:18 PM Note Text: Pt overdue for screening colonoscopy. Pt needs office visit prior due to medical hx. Please call pt and schedule with one of the general surgeons, Renetta Marquez or Colleen Herrera.. [facility] NotePatient Outreach (INTMWS) COMFORT RAM ([id number]) 1970 [facility] Date Time Provider Department 09/30/20 JOHNNIE PARMAR INTMWS During your visit today, we recorded the following information about you: Viry Mcintyre RN 09/30/2020 3:18 PM Signed Pt overdue for screening colonoscopy. Pt needs office visit prior due to medical hx. Please call pt and schedule with one of the general surgeons, Renetta Marquez or Colleen Herrera.. DECLAN Francis RN 09/30/2020 3:38 PM Signed Please see below note. Encounter closed in error. DECLAN Francis Pss 09/30/2020 4:15 PM Signed .1st failed attempt to contact patient. Unable to leave a message no voice mail setup. Aline Duenas PSS 10/08/2020 1:42 PM Signed Patient has no voicemail setup Mailed letter Patricia FONSECA Allergies As of Date: 09/30/2020 (No Known Allergies) Date Reviewed: 01/10/2019 Reviewed by: Zohreh Chappell LPN - Fully Assessed Reason for Visit: Outpatient Colonoscopy [482] Prescriptions as of 11/23/2020 - esomeprazole (NEXIUM) 20 mg capsule Take 1 capsule by mouth DAILY (6 AM). - COMPOUNDED PRESCRIPTION KNEE HIGH COMPRESSION STOCKINGS 30-40 MM. DX: EDEMA, VENOUS INSUFFICIENCY. Problem List As Of Date 09/30/2020 Noted Resolved Chronic pain of right ankle [M25.571, G89.29] 05/25/2015 Hepatitis C carrier (HCC) [B18.2] 05/25/2015 12/12/2018 GERD (gastroesophageal reflux disease) [K21.9] 05/25/2015 ALEX (obstructive sleep apnea) [G47.33] 05/25/2015 Anxiety associated with depression [F41.8] 05/25/2015 07/05/2016 Chronic hepatitis C without hepatic coma (HCC) *06/01/2015 Elevated blood pressure reading without diagnos*06/30/2015 07/05/2016 Erectile dysfunction [N52.9] 06/30/2015 Chronic bronchitis (HCC) [J42] 07/05/2016 Tobacco use disorder [F17.200] 07/05/2016 Venous insufficiency of both lower extremities *07/05/2016 Neuropathy (HCC) [G62.9] 01/05/2017 Dermatophytosis, nail [B35.1] 01/05/2017 Accidental overdose of heroin (HCC) [T40.1X1A] 09/24/2018 Encounter Status:Closed by VIRY MCINTYRE on 09/30/20[facility] History of Past illness Narrative* Problem Noted Date Resolved Date Elevated blood pressure read ing without diagnosis of hypertension 06/30/2015 07/05/2016 Hepatitis C carrier 05/25/2015 12/12/2018 Anxiety associated with depression 05/25/2015 07/05/2016 documented as of this encounter (statuses as of 09/21/2021) [facility] No data available for this section [facility] Evaluation note* Diagnosis Onset Date Resolution Status Current smoker acute Essential hypertension acute Umbilical hernia acute Chronic hepatitis C chronic Immunization declined noneac tive Screening for colon cancer n oneactive Establishing care with new doctor, encounter for noneactive [facility] Work Phone: Evaluation note* Diagnosis Onset Date Resolution Status Current smoker acute Essential hypertension acute Chronic hepatitis C chronic Umbilical hernia chronic Non-compliance noneactive Encounter for screening for malignant neoplasm of colon acute GERD (gastroesophageal reflux disease) chronic Umbilical hernia chronic [facility] Work Phone: Summary Purpose Family History No Family History Records Found Relationship Condition Age at Onset Recorded Date/T harriet father Malignant neoplasm Unknown Relationship Condition Age at Onset Recorded Date/T harriet father Malignant neoplasm Unknown grandfather Malignant neoplasm of stomach Unknown Advance Directives No Advanced Directives Records Found Advance Directive Response Recorded Date/ Time Living Will No September 16, 2022 1 2:09pm Power of Corporate Strategist No September 16, 2022 12:09pm Chief Complaint and Reason for Visit 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 Reason for Visit Current smoker Essential hypertension Chronic hepatitis C Umbilical hernia Non-compliance Encounter for screening for malignant neoplasm of colon GERD (gastroesophageal reflux disease) Umbilical hernia Chief Complaint FU Umbilical hernia/C-SCOPE insurance verification purposes only! H PYLORI TEST Reason for Visit Current smoker Essential hypertension Chronic hepatitis C Umbilical hernia Non-compliance Encounter for screening for malignant neoplasm of colon GERD (gastroesophageal reflux disease) Umbilical hernia Additional Source Comments (unrecognized sect ion and content) No Status Records FoundNo Status Records FoundNo Status Records FoundNo Status Records FoundNo Status Records FoundNo Status Records FoundNo Status Records Found INFORMATION SOURCE (unrecogn ized section and content) DATE CREATED AUTHOR 05/11/2021 [facility] DATE CREATED AUTHOR AUTHOR'S ORGANIZ ATION 06/07/2021 [facility] DATE CREATED AUTHOR AUTHOR'S ORGANIZ ATION 04/29/2022 [facility] ([place] DATE CREATED AUTHOR AUTHOR'S ORGANIZ ATION 03/09/2023 [facility] DATE CREATED AUTHOR AUTHOR'S ORGANIZ ATION 09/09/2023 [facility] DATE CREATED AUTHOR AUTHOR'S ORGANIZ ATION 06/29/2024 [facility] DATE CREATED AUTHOR AUTHOR'S ORGANIZ ATION 09/25/2024 [facility] Source Comments (unrecognize d section and content) In the event this informatio n is protected by the Federal Confidentiality of Alcohol and Drug Abuse Patient Records regulations: The Federal rules restrict any use of the information to criminally investigate or prosecute any alcohol or drug abuse patient.[facility] Care Teams (unrecognized sec tion and content) Sheet Metal Smith Relationship Specialty Start Date End Date Johnnie Parmar MD [address] [place] [address] PCP - General Internal Medicine 05/25/15 Team Status: Active Member Role Status Dates Dr. Donna Novoa MD Primary Care Provider Active Team Status: Inactive Member Role Status Dates Dr. Donna Novoa MD Primary Care Pro vider, Attending Provider, Referring Provider Active Team Status: Inactive Member Role Status Dates Dr. Donna Novoa MD Primary Care Provider, Referri ng Provider Active Dr. Gianluca De Jesus MD Attending Provider Active Team Status: Inactive Member Role Status Dates Dr. Donna Novoa MD Primary Care Provider, Referri ng Provider Active Surgery Nurse Attending Provider Active Team Status: Active Member Role Status Dates Dr. Donna Novoa MD Primary Care Provider, Referri ng Provider Active Dr. Gianluca De Jesus MD Attending Provider, Other Provi keith Active Team Status: Inactive Member Role Status Dates Dr. Donna Novoa MD Primary Care Provider, Referri ng Provider Active Surgery Nurse Active Dr. Gianluca De Jesus MD Attending Provider Active Team Status: Inactive Member Role Status Dates Dr. Donna Novoa MD Primary Care Provider Active Dr. Gianluca De Jesus MD Attending Provider, Referring P rovider Active Goals (unrecognized section and content) Goals may be documented in a n alternate section No data available for this section FOR RECORDS PERTAINING TO PATIENTS WHO ARE OR HAVE BEEN ENROLLED IN A CHEMICAL DEPENDENCY/SUBSTANCEABUSE PROGRAM, SOME INFORMATION MAY BE OMITTED. This clinical summary was aggregated from multiple sources. Caution should be exercised in using it in the provision of clinical care. This summary normalizes information from multiple sources, and as a consequence, information in this document may materially change the coding, format and clinical context of patient data. In addition, data may be omitted in some cases. CLINICAL DECISIONS SHOULD BE BASED ON THE PRIMARY CLINICAL RECORDS. [email or web address]. provides no warranty or guarantee of the accuracy or completeness of information in this document.
--- NOTE | 2024-10-12 11:25 | RAD_ITS ---
PROCEDURE: ORBITS FOR FOREIGN BODY 10/12/2024 REASON FOR EXAM: MRI CLEARANCE TECHNIQUE: ORBITS FOR FOREIGN BODY COMPARISON: None RAD/Orbits for Foreign Body IMPRESSION: No radiographic foreign body however please note that facial radiographs are li mited. No acute fractures. Reading Location: [id number]
--- NOTE | 2024-10-12 16:04 | MRI_ITS ---
PROCEDURE: SPINE LUMBAR (ROUTINE) 10/12/2024 REASON FOR EXAM: PAIN TECHNIQUE: SPINE LUMBAR (ROUTINE) COMPARISON: June 28, 2024 FINDINGS: There is grade 1 retrolisthesis at L1-2, 0.3 cm. There is grade 1 retrolisthesis at L 3-4, 0.3 cm. There is a 20% anterior compression deformity at T12 and L1, with chronic features. Vertebral body marrow signal is normal. Intervertebral disc signal shows desiccation. The facets are aligned. The L1-L2 level: There is moderate central and right and left paracentral disc protrusion. There is mild bilateral lateral recess stenosis. There is mild bilateral foraminal narrowing secondary to disc protrusion and facet hypertrophy. There is mild central canal stenosis. The L2-L3 level: There is moderate central and right and left paracentral disc and osteophyte protrusion. There is moderate bilateral lateral recess stenosis. There is moderate bilateral foraminal narrowing secondary to disc protrusion and facet hypertrophy. There is severe central canal stenosis, partly secondary to ligamentous hypertrophy.. The L3-L4 level: There is broad-based central and right and left paracentral disc and osteophyte protrusion. There is severe right and moderate left lateral recess stenosis. There is moderate bilateral foraminal narrowing secondary to disc and osteophyte protrusion. There is severe central canal stenosis, partly secondary to ligamentous hypertrophy. The L4-L5 level: There is broad-based central and right and left paracentral disc and osteophyte protrusion. There is moderate right and severe left lateral recess stenosis. There is mild right and moderate left foraminal narrowing secondary to disc and osteophyte protrusion. There is severe central canal stenosis, partly secondary to ligamentous hypertrophy. The L5-S1 level: There is moderate central and right and left paracentral disc protrusion. There is mild right and moderate left lateral recess stenosis. There is moderate left foraminal narrowing secondary to disc protrusion and facet hypertrophy. There is mild central canal stenosis. The visualized conus shows normal signal characteristics. Right renal cysts are partly visible with the largest measuring 3.4 cm. MRI/Spine Lumbar (Routine) IMPRESSION: There is grade 1 retrolisthesis at L1-2, 0.3 cm. There is grade 1 retrolisthesi s at L 3-4, 0.3 cm. There is a 20% anterior compression deformity at T12 and L1, with chronic featu res. There is mild central canal stenosis at L1-2, severe central canal stenosis at L2-3, L3-4, and L4-5, with mild central canal stenosis at L5-S1, with lateral recess and foraminal narrowing. Reading [facility]
== END | disposition home or self-care (01) ==
LOC: MRI 11:16
PROVIDERS: PCP Internal Medicine; Referring Provider Student in an Organized Health Care Education/Training Program; Visit Provider Student in an Organized Health Care Education/Training Program
DX: T15.91XA Foreign body on external eye, part unspecified, right eye, initial encounter (principal); T15.92XA Foreign body on external eye, part unspecified, left eye, initial encounter
CPT/HCPCS: 70030; 72148